=== PATIENT | male | born 1980 | race Caucasian/White ===

== ENCOUNTER 2019-02-01 21:22 | Emergency (ER) | payer OTHER ==
[~2019-02-01] VITALS: Ht 182.9 cm; Wt 83.9 kg
[2019-02-01] MEDS ORDERED: MYFORTIC180 MG PO (21:29)
[2019-02-01] MEDS ORDERED: ENVARSUS XR0.75 MG PO (21:29)
[2019-02-01 21:45] LABS: URINE BILIRUBIN NEGATIVE (Negative); URINE BLOOD 3+ (Negative); URINE CLARITY CLEAR; URINE COLOR YELLOW; URINE GLUCOSE-RANDOM TRACE (Negative); URINE KETONES NEGATIVE (Negative); URINE LEUKOCYTES-REFLEX 1+ (Negative); URINE NITRITE-REFLEX NEGATIVE (Negative); URINE PROTEIN 1+ (Negative); URINE SPECIFIC GRAVITY <= 1.005 (1.005-1.030); URINE UROBILINOGEN 0.2 E.U./dl (0.2-1.0)
[2019-02-01 22:01] LABS: BACTERIA-REFLEX 1-9 Few /HPF (None Seen); CASTS None Seen /LPF (None Seen); CRYSTALS None Seen /LPF (None Seen); SQUAMOUS 0-3 Few /LPF (0-3); URINE RBC 3-10 Few /HPF (0-2); URINE WBC-REFLEX None Seen /HPF (0-5)
[2019-02-01 22:03] LABS: ABSOLUTE EOSINOPHILS 0.4 thou/uL (0.0-0.7); ABSOLUTE LYMPHOCYTES 0.6 thou/uL (0.8-5.3); ABSOLUTE MONOCYTES 0.5 thou/uL (0.0-1.2); BASOPHILS 0.5 %; EOSINOPHILS 7.4 %; HEMATOCRIT 35.8 % (42.0-52.0); HEMOGLOBIN 12.2 gm/dL (14.0-18.0); LYMPHOCYTES 10.8 %; MCH 32.8 pg (26.0-34.0); MCHC 34.2 g/dL (28.0-37.0); MONOCYTES 9.2 %; MPV 8.4 fl. (7.2-11.1); NUCLEATED RBCS 0 /100WBC; PLATELET COUNT* 188 thou/uL (150-400); POLYS 72.1 %; RBC 3.73 mil/uL (4.50-6.00); RDW-CV 12.1 % (10.5-14.5); WBC 5.5 thou/uL (4.0-11.0)
[2019-02-01 22:18] LABS: CALCIUM 8.7 mg/dL (8.5-10.1); CREATININE 11.6 mg/dL (0.6-1.3); POTASSIUM 4.8 mmol/L (3.5-5.1)
[2019-02-01 22:23] LABS: ALBUMIN 2.7 g/dL (3.4-5.0); TOTAL BILIRUBIN 0.3 mg/dL (<0.1-1.0); TOTAL PROTEIN 6.6 g/dL (6.4-8.2)
[2019-02-01 22:40] LABS: APTT 37.7 Seconds (25.0-31.3); INR 1.1; PROTIME 11.3 Seconds (9.20-11.50)
[2019-02-02 00:50] VITALS: BP 108/64
== END 2019-02-02 00:50 | disposition short-term general hospital (02) ==
LOC: M.ERS 21:22
PROVIDERS: Physician Assistant
DX: N45.1 Epididymitis (principal); N17.9 Acute kidney failure, unspecified; R60.1 Generalized edema; Z88.6 Allergy status to analgesic agent; Z94.0 Kidney transplant status

== ENCOUNTER 2019-03-30 15:09 | Inpatient (IN) | payer OTHER ==
[~2019-03-30] VITALS: Ht 182.9 cm; Wt 94.8 kg
--- NOTE | ~2019-03-30 | CON ---
[address] [address] CONSULTATION Name: AYANA MARIA Room: [address] ADM IN M.R.#: [id number] Admission: 03/30/19 Attend Phys: Morena York Discharge: Date of : 82 Report #: [id number] THIS REPORT FOR: //name// CC: [facility] physician/PCP Abhijit Larkin DATE OF SERVICE: 03/31/2019 NEPHROLOGY CONSULTATION The patient is at [facility]. He is in room 109, admitted to Dr. Larkin. REASON FOR CONSULTATION: I am asked to see this 38-year-old gentleman at the request of Dr. Larkin for ESRD management. CHIEF COMPLAINT: The patient presented to the ED yesterday with abnormal lab work. His hemoglobin was down in the 6.8 range. He did not feel badly, but was told to come to the ED because of this. He has some fatigue, which he says is quite common for him after dialysis. He has not had any fever, chills, bleeding from any orifice and no abnormal findings. He said he was rather surprised that his levels were low. PAST MEDICAL HISTORY: He was dialyzing in [place], [place] until he moved to the [place] area. He now dialyzes at the [facility] [facility] off [address]. He dialyzes on Thursday, Thursday, and Thursday. He tolerates this well. His end-stage renal disease is on the basis of polycystic kidney disease. 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 He said there is still hope that the kidney may function, so therefore he is still on mycophenolate as well as tacrolimus. He does not recall the doses. Otherwise, besides his polycystic kidney disease, he has anemia and says that otherwise he has been quite healthy. 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 He says he makes normal amounts per day. He does not think it has gone up or down since his transplant. FAMILY HISTORY: Positive for polycystic kidney disease. SOCIAL HISTORY: No alcohol. No recreational drugs. Apparently in the past, there was some notation of tobacco use, but he stopped doing this. It has been over a couple of years. ALLERGIES: ASPIRIN AND MAGNESIUM. HOME MEDICATIONS: Tacrolimus b.i.d. daily and mycophenolate daily b.i.d. Again, he does not know [place] [address] CONSULTATION Name: AYANA MARIA Room: [address]#: [id number] Admission: 03/30/19 Attend Phys: Morena York Discharge: Date of : 82 Report #: [id number] REVIEW OF SYSTEMS: HEENT: No recent changes in vision or hearing. CARDIAC: No known disease. No chest pain. PULMONARY: Not short of air. No known pulmonary diseases. GASTROINTESTINAL: No nausea, vomiting. No melena. No hematochezia. No constipation or diarrhea. GENITOURINARY: End-stage renal disease, polycystic kidney disease, renal transplant in the right lower quadrant several years ago. He says he has suffered from acute rejection. He is still on his immunosuppressives. HEMATOLOGIC AND LYMPHATIC: Profound anemia. No malignancy history. MUSCULOSKELETAL: Negative. PSYCHIATRIC: Negative. NEUROLOGIC: No TIA, CVA, Parkinson's disease or seizure disorder. ENDOCRINE: Negative for type 2 DM or hypothyroidism. Other 14-point review positive only for polycystic kidney disease, anemia, and immunosuppression. PHYSICAL EXAMINATION: GENERAL: He is awake, alert, healthy appearing. VITAL SIGNS: Temperature is 37.2, heart rate 68, respirations 16, blood pressure initially 172/90, now 122/70. HEENT: Atraumatic, normocephalic. Pupils react to light. NECK: Supple, no increased jugular venous pressure. No bruits. CHEST: Clear. HEART: S1, S2. No rubs, no gallops. ABDOMEN: Soft, nontender, positive bowel sounds. No tenderness over his right renal transplant. EXTREMITIES: Show 2+ pulses. No edema. Negative Homans. NEUROLOGIC: Cranial nerves, sensory, motor are at his baseline. LABORATORY DATA: Shows hemoglobin of 6 on admission, 6.8 this morning, hematocrit 20, white count 2500, platelets are 146,000. Chemistry shows sodium 144, potassium 4.0, chloride 101, CO2 25, BUN 75, creatinine 11.3, glucose 104, calcium 8.8. Liver function studies are not increased. Albumin 3.1. IMAGING STUDIES: Have not recently been done. IMPRESSION: 1. Anemia, questionable etiology. I do not know his recent hemoglobin at his dialysis unit. He does not have any signs of active bleeding. Obviously, he will be looked at for possible etiologies such as undiagnosed bleeding versus destruction versus anemia related to kidney disease and lack of formation of red blood cells. 2. Status post renal transplant several years back. He does not recall the date. He remains on chronic immunosuppressive medications in the form of mycophenolate and tacrolimus. When asked why he is still on these since he is dialysis dependent, he said this is because he has been termed [place] [address] CONSULTATION Name: AYANA MARIA Room: [address] IN [facility]#: [id number] Admission: 03/30/19 Attend Phys: Morena York Discharge: Date of : 82 Report #: [id number] and there is hope that the transplant may indeed began to function. 3. Chronic immunosuppression. 4. End-stage renal disease, on Thursday, Thursday, Thursday dialysis at [place] [facility]. PLAN: 1. We will begin erythropoietin. I am concerned that the patient is not taking his immunosuppressives, they have not been ordered here. I have spoken with his RN and asked her to continue these as he will have someone bring them from home. He needs to remain on his immunosuppressives until he is instructed not to take them. 2. His primary service will likely perform testing to try and ascertain the cause of his anemia to include looking for any hemolysis versus lack of production versus bleeding versus other. 3. We will start erythropoietin. 4. Dialysis tomorrow per his usual schedule. 5. Further recommendations to follow. By: [id number] Nassar MD /nt
[~2019-03-30 15:09] MED LIST: ENVARSUS XR1 MG PO; MYFORTIC360 MG PO
[2019-03-30 15:20] VITALS: BP 126/76
[2019-03-30 16:23] LABS: ABSOLUTE EOSINOPHILS 0.1 thou/uL (0.0-0.7); ABSOLUTE LYMPHOCYTES 0.1 thou/uL (0.8-5.3); ABSOLUTE MONOCYTES 0.5 thou/uL (0.0-1.2); ABSOLUTE NEUTROPHILS 2.7 thou/uL (1.6-8.1); BASOPHILS 0.4 %; EOSINOPHILS 2.3 %; LYMPHOCYTES 3.6 %; MCH 31.4 pg (26.0-34.0); MCV 92.3 fL (80.0-100.0); MONOCYTES 13.4 %; MPV 8.1 fl. (7.2-11.1); NUCLEATED RBCS 0 /100WBC; PLATELET COUNT* 165 thou/uL (150-400); POLYS 80.3 %; RBC 1.93 mil/uL (4.50-6.00); RDW-CV 14.9 % (10.5-14.5); WBC 3.4 thou/uL (4.0-11.0)
[2019-03-30 16:28] LABS: HEMATOCRIT 17.8 % (42.0-52.0)
[2019-03-30 16:31] LABS: ALBUMIN 3.1 g/dL (3.4-5.0); CALCIUM 8.8 mg/dL (8.5-10.1); POTASSIUM 4.4 mmol/L (3.5-5.1); TOTAL BILIRUBIN 0.3 mg/dL (<0.1-1.0); TOTAL PROTEIN 6.1 g/dL (6.4-8.2)
[2019-03-30 16:37] LABS: CREATININE 11.3 mg/dL (0.6-1.3)
[2019-03-30 19:44] VITALS: BP 189/59
[2019-03-30 20:59] VITALS: BP 136/72; BP 139/88; BP 140/80; BP 148/82; BP 160/91
[2019-03-30 21:00] VITALS: BP 160/97
[2019-03-31 01:17] LABS: MCH 30.7 pg (26.0-34.0); MCV 90.3 fL (80.0-100.0); MPV 7.7 fl. (7.2-11.1); RBC 2.22 mil/uL (4.50-6.00); RDW-CV 14.4 % (10.5-14.5); WBC 2.5 thou/uL (4.0-11.0)
[2019-03-31 01:54] LABS: HEMOGLOBIN 6.8 gm/dL (14.0-18.0)
[2019-03-31 04:00] VITALS: BP 146/88
--- NOTE | 2019-03-31 05:46 | NUR ---
FIRST UNIT OF BLOOD TRANSFUSION WAS ALMOST DONE WHEN HE ARRIVE AT 1945 FROM THE ER. VITALS STABLE. NO SYMPTOMS OF REACTIONS. SECOND UNIT OF BLOOD GIVEN ORDERED. ADMISSION HISTORY/ASSESSMENT COMPLETED. H&H DONE AFTER THE TRANSFUSION. Hgb 6.8, Dr. Larkin notified. ONE MORE UNIT OF BLOOD ORDERED. HOURLY ROUNDING COMPLETED. WILL CONTINUE TO MONITOR.
[2019-03-31 08:05] VITALS: BP 172/97
[2019-03-31 09:31] VITALS: BP 122/77; BP 125/86; BP 135/76; BP 142/82
--- NOTE | 2019-03-31 12:20 | NUR ---
SW met with pt to complete initial assessment, introduce self, and SW role. Pt was sleepy but alert to conversation and oriented. Pt lives at home with significant other and is independent with mobility and ADLs. Pt moved to this area a year ago and is established with dialysis MWF. Pt did not express any dc needs at this time.
[2019-03-31 16:50] VITALS: BP 141/80
--- NOTE | 2019-03-31 17:48 | NUR ---
PATIENT RESTING IN BED. PATIEN TIS UP AD QUENTIN IN ROOM. PATIENT DENIES ANY PAIN. PATIENT HAD BLOOD TRANSFUSION THIS AM WITHOUT INCIDENT. PATIENT HAS FAIR APPETITE. PATIENT DENIES ANY NEEDS AT THIS TIME. CALL LIGHT WITHIN REACH. WILL CONTINUE TO MONITOR.
[2019-03-31 19:40] VITALS: BP 156/100
[2019-03-31 21:30] VITALS: BP 144/84
[2019-04-01 04:17] LABS: CALCIUM 8.5 mg/dL (8.5-10.1); POTASSIUM 5.1 mmol/L (3.5-5.1)
[2019-04-01 04:20] LABS: CREATININE 13.4 mg/dL (0.6-1.3)
--- NOTE | 2019-04-01 04:38 | NUR ---
PATIENT HAS REMAINED ALERT AND ORIENTED X 4 THROUGHOUT THE SHIFT AND RESTING QUIETLY ON HOURLY ROUNDS. UP INDEPENDENTLY WITH STEADY GAIT. NO STATED PROBLEMS THIS SHIFT. NO BM FOR TESTING. HOME MEDS STARTED. VITAL SIGNS STABLE. PATIENT STATES HE HAS DIALYSIS IN THE AM ON THURSDAY, THURSDAY AND THURSDAY. WOULD LIKE TO HAVE HERE PRIOR TO DISCHARGE IF POSSIBLE TODAY. CONTINUE TO MONITOR.
[2019-04-01 07:30] VITALS: BP 145/83
[2019-04-01 08:34] LABS: HEMATOCRIT 23.2 % (42.0-52.0); HEMOGLOBIN 8.1 gm/dL (14.0-18.0); MCH 31.5 pg (26.0-34.0); MCV 89.8 fL (80.0-100.0); MPV 8.2 fl. (7.2-11.1); RBC 2.58 mil/uL (4.50-6.00); RDW-CV 14.3 % (10.5-14.5); WBC 3.6 thou/uL (4.0-11.0)
[2019-04-01 11:30] VITALS: BP 145/83
--- NOTE | 2019-04-01 12:18 | NUR ---
Pt to dc home with significant other today. MELVA called [facility] in [place] and spoke with Cailin, the clinic will expect and accept pt back on Thursday. SW to fax flow sheets. No other dc needs expressed.
[2019-04-01 12:49] VITALS: BP 154/89
--- NOTE | 2019-04-01 13:01 | NUR ---
PATIENT HAD DIALYSIS THIS AM, RETURNED AROUND 1245. VITALS STABLE CHARTED. IV DC'D. PATIENT OK TO DISCHARGE PER DR. VILLA AND DR. SKELTON. PATIENT VERBALIZES UNDERSTANDING OF PAPEWORK, NO SCRIPTS. PATIENT GIVEN BACK HOME MEDICATIONS FROM [facility], STATED WILL TAKE TODAYS DOSES AT HOME. PATIENT AMBULATED OUT WITH NURSING STAFF AND ALL BELONGINGS.
== END 2019-04-01 13:05 | disposition home or self-care (01) | DRG 811 ==
LOC: M.ERS 15:09 → M.ORTHSURG 17:33 → M.TBA-ER 17:33 → M.ORTHSURG 20:42
PROVIDERS: Emergency Medicine; Internal Medicine Nephrology; ADMIT Internal Medicine
PROC: 30233N1 Transfusion of Nonautologous Red Blood Cells into Peripheral Vein, Percutaneous Approach (ICD-10-PCS; principal; 2019-03-30)
PROC: 5A1D70Z Performance of Urinary Filtration, Intermittent, Less than 6 Hours Per Day (ICD-10-PCS; 2019-04-01)
DX: D64.9 Anemia, unspecified (principal); N18.6 End stage renal disease; Z94.0 Kidney transplant status; Z88.6 Allergy status to analgesic agent; Z99.2 Dependence on renal dialysis; Z82.71 Family history of polycystic kidney

== ENCOUNTER 2019-04-26 07:07 | Emergency (ER) | payer OTHER ==
[~2019-04-26] VITALS: Ht 182.9 cm; Wt 90.7 kg
[2019-04-26 07:44] LABS: ABSOLUTE EOSINOPHILS 0.1 thou/uL (0.0-0.7); ABSOLUTE LYMPHOCYTES 0.6 thou/uL (0.8-5.3); ABSOLUTE MONOCYTES 0.7 thou/uL (0.0-1.2); ABSOLUTE NEUTROPHILS 3.4 thou/uL (1.6-8.1); BASOPHILS 0.7 %; EOSINOPHILS 2.7 %; HEMATOCRIT 28.3 % (42.0-52.0); HEMOGLOBIN 9.6 gm/dL (14.0-18.0); MCH 30.9 pg (26.0-34.0); MCHC 33.8 g/dL (28.0-37.0); MCV 91.5 fL (80.0-100.0); MONOCYTES 14.4 %; MPV 7.4 fl. (7.2-11.1); NUCLEATED RBCS 0 /100WBC; PLATELET COUNT* 144 thou/uL (150-400); POLYS 70.2 %; RBC 3.09 mil/uL (4.50-6.00); RDW-CV 15.3 % (10.5-14.5); WBC 4.8 thou/uL (4.0-11.0)
[2019-04-26 07:47] LABS: URINE BILIRUBIN NEGATIVE (Negative); URINE BLOOD 1+ (Negative); URINE CLARITY CLEAR; URINE COLOR YELLOW; URINE GLUCOSE-RANDOM TRACE (Negative); URINE KETONES NEGATIVE (Negative); URINE LEUKOCYTES-REFLEX NEGATIVE (Negative); URINE NITRITE-REFLEX NEGATIVE (Negative); URINE PROTEIN 2+ (Negative); URINE SPECIFIC GRAVITY 1.015 (1.005-1.030); URINE UROBILINOGEN 0.2 E.U./dl (0.2-1.0)
[2019-04-26 07:55] LABS: CALCIUM 8.7 mg/dL (8.5-10.1); CREATININE 9.4 mg/dL (0.6-1.3); POTASSIUM 4.5 mmol/L (3.5-5.1)
[2019-04-26 07:58] LABS: ALBUMIN 3.3 g/dL (3.4-5.0); TOTAL BILIRUBIN 0.5 mg/dL (<0.1-1.0); TOTAL PROTEIN 6.8 g/dL (6.4-8.2)
[2019-04-26 08:02] LABS: BACTERIA-REFLEX 1-9 Few /HPF (None Seen); MUCUS 0-3 Light strn/LPF (None Seen); SQUAMOUS 0-3 Few /LPF (0-3); URINE RBC 3-10 Few /HPF (0-2); URINE WBC-REFLEX 0-5 Rare /HPF (0-5)
[2019-04-26 08:03] LABS: AMORPHOUS PHOSPHATES Moderate /LPF (None Seen); FINE GRANULAR CASTS 0-3 Few /LPF (None Seen)
--- NOTE | 2019-04-26 10:53 | EKG ---
[place] [address] ELECTROCARDIOGRAM REPORT Name: AYANA MARIA Room: [facility]#: [id number] Admission: 04/26/19 Attend Phys: Discharge: Date of : 82 Report #: [id number] THIS REPORT FOR: //name// [facility] ED Test Date: 2019-04-26 Test Time: 07:37:03 Pat Name: AYANA MARIA Department: Room: Gender: M Addresser: : 1980 Requested By: Malik Watson Order Number: [id number] MD: Jani York Measurements Intervals [place] Rate: 62 P: 69 CT: 173 QRS: 13 QRSD: 101 T: 67 QT: 454 QTc: 461 Interpretive Statements Sinus rhythm Baseline wander in lead(s) V3 No previous ECG available for comparison Electronically Signed On 04-26-2019 10:53:08 CDT by Jani York [email or web address] <ELECTRONICALLY SIGNED> By: Jani York MD, [facility] 04/26/19 1053 0737 0737 Jani York MD, [facility] /EPI
[2019-04-26 11:00] VITALS: BP 145/77
== END 2019-04-26 11:00 | disposition short-term general hospital (02) ==
LOC: M.ERS 07:07
PROVIDERS: Family Medicine
DX: N18.6 End stage renal disease (principal); K56.1 Intussusception; R10.31 Right lower quadrant pain; Z99.2 Dependence on renal dialysis; Z94.0 Kidney transplant status; Z79.899 Other long term (current) drug therapy; Z88.6 Allergy status to analgesic agent; Z88.8 Allergy status to other drugs, medicaments and biological substances

== ENCOUNTER 2019-06-12 21:54 | Inpatient (IN) | payer OTHER ==
[~2019-06-12] VITALS: Ht 182.9 cm; Wt 99.5 kg
[2019-06-12] MEDS ORDERED: RENAL VITAMIN0.8 MG PO (22:02)
[2019-06-12] MEDS ORDERED: PHOSPHORUS PO (22:03)
[2019-06-12 22:04] VITALS: BP 174/99
[2019-06-12 22:26] LABS: ABSOLUTE EOSINOPHILS 0.2 thou/uL (0.0-0.7); ABSOLUTE LYMPHOCYTES 0.6 thou/uL (0.8-5.3); ABSOLUTE MONOCYTES 0.4 thou/uL (0.0-1.2); ABSOLUTE NEUTROPHILS 2.9 thou/uL (1.6-8.1); BASOPHILS 0.6 %; EOSINOPHILS 5.2 %; HEMATOCRIT 24.3 % (42.0-52.0); HEMOGLOBIN 8.3 gm/dL (14.0-18.0); LYMPHOCYTES 13.4 %; MCH 31.7 pg (26.0-34.0); MCHC 34.2 g/dL (28.0-37.0); MCV 92.5 fL (80.0-100.0); MONOCYTES 9.6 %; MPV 7.5 fl. (7.2-11.1); NUCLEATED RBCS 0 /100WBC; PLATELET COUNT* 100 thou/uL (150-400); POLYS 71.2 %; RBC 2.63 mil/uL (4.50-6.00); RDW-CV 15.9 % (10.5-14.5); WBC 4.1 thou/uL (4.0-11.0)
[2019-06-12 22:32] LABS: INR 1.1; PROTIME 11.7 Seconds (9.20-11.50)
[2019-06-12 22:38] LABS: ANION GAP 23 mmol/L (7-16); BUN 190 mg/dL (7-18); CHLORIDE 100 mmol/L (98-107); CO2 14 mmol/L (21-32); CREATININE 21.7 mg/dL (0.6-1.3); GLUCOSE 100 mg/dL (70-99); SODIUM 137 mmol/L (136-145)
[2019-06-12 22:40] LABS: ALBUMIN 3.3 g/dL (3.4-5.0); ALKALINE PHOSPHATASE 72 U/L (46-116); SGOT 19 U/L (15-37); SGPT 26 U/L (30-65); TOTAL BILIRUBIN 0.4 mg/dL (<0.1-1.0); TOTAL PROTEIN 6.9 g/dL (6.4-8.2); TROPONIN-I LEVEL <0.06 ng/mL (<0.06)
[2019-06-12 22:52] LABS: POTASSIUM 6.9 mmol/L (3.5-5.1)
[2019-06-12 23:05] LABS: URINE BILIRUBIN NEGATIVE (Negative); URINE BLOOD 2+ (Negative); URINE CLARITY CLEAR; URINE COLOR YELLOW; URINE GLUCOSE-RANDOM TRACE (Negative); URINE KETONES NEGATIVE (Negative); URINE LEUKOCYTES-REFLEX NEGATIVE (Negative); URINE NITRITE-REFLEX NEGATIVE (Negative); URINE PROTEIN 3+ (Negative); URINE UROBILINOGEN 0.2 E.U./dl (0.2-1.0)
[2019-06-12 23:11] LABS: SQUAMOUS 0-3 Few /LPF (0-3); TRANSITIONAL EPITHEL CELL 0-3 Few /LPF (None Seen)
[2019-06-12 23:12] LABS: CASTS None Seen /LPF (None Seen); CRYSTALS None Seen /LPF (None Seen); MUCUS 0-3 Light strn/LPF (None Seen); URINE RBC >20 Many /HPF (0-2); URINE WBC-REFLEX 6-15 Few /HPF (0-5)
[2019-06-12 23:41] LABS: AMP/METHAMP Negative (Negative); BARBITURATES Negative (Negative); BENZODIAZEPINES Negative (Negative); COCAINE Negative (Negative); METHADONE Negative (Negative); OPIATES Negative (Negative); PCP Negative (Negative); THC Negative (Negative)
[2019-06-13 05:00] VITALS: BP 155/85
--- NOTE | 2019-06-13 05:33 | NUR ---
NOTIFIED BY DIALYSIS RE: DIALYSIS TREATMENT THIS MORNING
[2019-06-13 08:15] VITALS: BP 157/93
[2019-06-13 13:15] VITALS: BP 145/86
[2019-06-13 13:30] VITALS: BP 145/86
[2019-06-13 16:55] VITALS: BP 157/87
[2019-06-13 18:41] LABS: CALCIUM 8.2 mg/dL (8.5-10.1)
[2019-06-13 18:42] LABS: CREATININE 14.4 mg/dL (0.6-1.3); POTASSIUM 3.6 mmol/L (3.5-5.1)
[2019-06-13 20:08] VITALS: BP 154/89
--- NOTE | 2019-06-13 20:09 | NUR ---
PT ARRIVED ON THE UNIT AROUND 1330. PT VSS, NSR ON TELE. PT UP AT QUENTIN MOVING TO RESTROOM TO VOID WITHOUT DIFFICULTY. PT EXPERIENCING PAIN ON MOVEMENT. PT ORIENTED TO THE ROOM AND CALL LIGHT. PT RESTED MOST OF THE AFTERNOON AFTER DIALYSIS. PT HAS AV FISTULA ON LEFT UPPER ARM. THRILL AND BRUIT PRESENT. DIALYSIS SCHEDULED FOR TOMORROW ALSO, PT HAS NOT GONE TO DIALYSIS FOR TEN DAYS. PT NAUSEATED AND VOMITTING AFTER IV MORPHINE ADMINISTRATION. HOURLY ROUNDING PERFORMED. POSSESSIONS AND CALL LIGHT PLACED WITHIN REACH.
[2019-06-14] VITALS: BP 159/96
[2019-06-14 04:00] VITALS: BP 148/88
--- NOTE | 2019-06-14 06:54 | NUR ---
Pt c/o rt flank pain, rates 8-10/10 when asking for pain medication. Pt usually asleep when pain reassessed. VSS. Anticipating dialysis today. Will continue to monitor.
[2019-06-14 08:00] VITALS: BP 165/93
[2019-06-14 08:10] LABS: HEMATOCRIT 24.7 % (42.0-52.0); HEMOGLOBIN 8.6 gm/dL (14.0-18.0); MCH 31.4 pg (26.0-34.0); MCHC 34.9 g/dL (28.0-37.0); MCV 89.8 fL (80.0-100.0); MPV 7.4 fl. (7.2-11.1); RBC 2.75 mil/uL (4.50-6.00); RDW-CV 15.5 % (10.5-14.5); WBC 4.2 thou/uL (4.0-11.0)
[2019-06-14 08:28] LABS: ALBUMIN 2.9 g/dL (3.4-5.0); POTASSIUM 3.7 mmol/L (3.5-5.1); TOTAL BILIRUBIN 0.3 mg/dL (<0.1-1.0); TOTAL PROTEIN 6.1 g/dL (6.4-8.2)
[2019-06-14 08:29] LABS: CREATININE 15.4 mg/dL (0.6-1.3)
--- NOTE | 2019-06-14 11:40 | NUR ---
Pt out of room. CM spoke to Cailin, nurse at [facility]. SARAH discussed switching Pt's dialysis schedule to T-TH-Sat, in hopes that it would make it easier for Pt to be compliant with dialysis. Per Cailin, she has attempted to discuss changing this with Pt multiple times and Pt will either say that the change won't work or won't answer the phone. Pt is about 1 month out from getting home dialysis set up. Cailin did confirm that they have a TTHS schedule available with a chair time of 545am. CM will discuss with Pt when back in the room.
--- NOTE | 2019-06-14 14:49 | CON ---
[address] [address] CONSULTATION Name: CROWAYANA BUTTS Room: [address] IN M.R.#: [id number] Admission: 06/13/19 Attend Phys: Rusty Gale MD Discharge: Date of : 82 Report #: [id number] THIS REPORT FOR: //name// CC: [facility] physician/PCP Rusty Gale NEPHROLOGY CONSULT CONSULTING PHYSICIAN: Rusty Gale MD REASON FOR CONSULT: End-stage kidney disease. HISTORY OF PRESENT ILLNESS: This is a 38-year-old gentleman with a history of end-stage kidney disease who missed dialysis for about 10 days due to work conflict. He works 12 hours a day, 5 days a week and was unable to attend his dialysis session to help accommodate his work schedule. Home dialysis evaluation is currently in process. He came in with potassium of 6.9 and a BUN of almost 200. He was having some chest pain and shortness of breath and has some evidence of volume overload on imaging. He underwent dialysis today, tolerated it well, has no complaints and appears to be comfortable at present time. REVIEW OF SYSTEMS: Constitutional, psych, heme, eyes, ENT, respiratory, cardiac, GI, , endocrine are all negative except as documented above. PAST MEDICAL HISTORY: History of polycystic kidney disease, history of kidney transplant. FAMILY HISTORY: Positive for polycystic kidney disease. SOCIAL HISTORY: No tobacco or drugs. MEDICATIONS: Reviewed. PHYSICAL EXAMINATION: VITAL SIGNS: Blood pressure 145/86, pulse 68, respirations 16, temperature 36.9. GENERAL: No acute distress. EYES: Open. EARS: Externally normal. NECK: Supple. CARDIOVASCULAR: Regular rate. No rub. LUNGS: Diminished breath sounds. ABDOMEN: Soft. MUSCULOSKELETAL: Nontender. PSYCHIATRIC: Awake, alert. [address] [address] CONSULTATION Name: MARTHAJAYAYANA Room: [address]#: [id number] Admission: 06/13/19 Attend Phys: Rusty Gale MD Discharge: Date of : 82 Report #: [id number] LABORATORY DATA: White cell count 4.1, hemoglobin 8.3, platelets 100. Sodium 137, potassium 6.9, on recheck it was 5.3, chloride 100, bicarbonate 14, BUN 190, creatinine 22, glucose 100, calcium 8, albumin 3.3. ASSESSMENT AND PLAN: 1. End-stage kidney disease, hemodialysis Thursday, Thursday and Thursday at the [facility]. Last dialysis was 06/03/2019. 2. Hyperkalemia on admission with potassium of 6.9. 3. Hypertension. 4. Autosomal dominant polycystic kidney disease. 5. History of kidney transplant in 2014. PLAN: 1. He had evidence of volume overload and hyperkalemia on admission. He was dialyzed this morning and tolerated treatment well. 2. Would avoid morphine in the setting of end-stage kidney disease. 3. Add 2 gram potassium dietary restriction. 4. Add renal multivitamin. 5. I did discuss with him compliance with dialysis treatments. He is being evaluated for home dialysis and has met with home dialysis nurse. We will follow up to see where he is at in that process. 6. We will switch his dialysis schedule on an outpatient setting to Thursday, and Thursday. He is off on Tuesdays and it would be easier for his work schedule for him to make it to the dialysis treatments. 7. Dialysis again tomorrow. We will ultrafilter as tolerated as he does have some evidence of volume overload. Currently, appears to be stable. Thank you for requesting my opinion in the care and management of this patient. <ELECTRONICALLY SIGNED> By: Yancy Marte MD 06/14/19 1449 1606 2232Azay Marte MD /nt
--- NOTE | 2019-06-14 14:52 | EKG ---
[place] [address] ELECTROCARDIOGRAM REPORT Name: AYANA MARIA Room: [address] ADM IN M.R.#: [id number] Admission: 06/13/19 Attend Phys: Rusty Gale MD Discharge: Date of : 82 Report #: [id number] THIS REPORT FOR: //name// [facility] ED Test Date: 2019-06-12 Test Time: 21:58:49 Pat Name: AYANA MARIA Department: Room: [facility] Gender: M Post Adoption Coordinator: AW : 1980 Requested By: Fang Chaney Order Number: [id number] MD: Jose Coronado Measurements Intervals [place] Rate: 61 P: 70 DE: 165 QRS: 26 QRSD: 99 T: 44 QT: 454 QTc: 458 Interpretive Statements Sinus rhythm Baseline wander in lead(s) V1,V3 Compared to ECG 04/26/2019 07:37:03 No significant changes Electronically Signed On 06-14-2019 14:51:54 CDT by Jose Coronado [email or web address] <ELECTRONICALLY SIGNED> By: Jose Coronado MD, [facility] 06/14/19 1451 2158 2158 Jose Coronado MD, [facility] /EPI
[2019-06-14 16:30] VITALS: BP 165/93
[2019-06-14] MEDS ORDERED: ONDANSETRON HCL4 M2 PO (17:15)
[2019-06-14] MEDS ORDERED: NORCO 5-325 TA1 EAC1 PO (17:16)
--- NOTE | 2019-06-14 18:21 | NUR ---
ASSUMED PT CARE AT 0730. ASSESSMENT COMPLETED CHARTED. ABLE TO MAKE NEEDS KNOWN. UP AD QUENTIN IN ROOM. C/O FLANK PAIN AND NAUSEA AND GAVE PRN FOR BOTH PER EMAR. DISCHARGE PAPERWORK GIVEN AND EXPLAINED. IV TAKEN OUT AND HEART MONITOR RETURNED. PT WALKED OUT WITH NURSING STAFF TO WITH ALL BELONGINGS AND SCRIPTS FOR NEW MEDICATIONS AT 0615.
== END 2019-06-14 18:15 | disposition home or self-care (01) | DRG 698 ==
LOC: M.ERS 21:54 → M.2W 06-13 01:09 → M.TBA-ER 06-13 01:09 → M.2W 06-13 12:54
PROVIDERS: Emergency Medicine; Internal Medicine Nephrology; ADMIT Internal Medicine
PROC: 5A1D70Z Performance of Urinary Filtration, Intermittent, Less than 6 Hours Per Day (ICD-10-PCS; principal; 2019-06-13)
DX: T86.19 Other complication of kidney transplant (principal); N18.6 End stage renal disease; N17.9 Acute kidney failure, unspecified; I12.0 Hypertensive chronic kidney disease with stage 5 chronic kidney disease or end stage renal disease; D64.9 Anemia, unspecified; E87.70 Fluid overload, unspecified; Y84.1 Kidney dialysis as the cause of abnormal reaction of the patient, or of later complication, without mention of misadventure at the time of the procedure; E87.5 Hyperkalemia; Z94.0 Kidney transplant status; Z99.2 Dependence on renal dialysis; Z82.71 Family history of polycystic kidney; Z87.891 Personal history of nicotine dependence; Y92.89 Other specified places as the place of occurrence of the external cause; Z79.899 Other long term (current) drug therapy; Z88.6 Allergy status to analgesic agent; Z88.8 Allergy status to other drugs, medicaments and biological substances

== ENCOUNTER 2019-06-19 16:24 | Inpatient (IN) | payer OTHER ==
[~2019-06-19] VITALS: Ht 182.9 cm; Wt 99.3 kg
[~2019-06-19 16:24] MED LIST changes: +NORCO 5-325 TA1 EAC1 PO; +ONDANSETRON HCL4 M2 PO; +PHOSLO667 MG PO; +RENAL VITAMIN0.8 MG PO
[2019-06-19 16:28] VITALS: BP 177/102
[2019-06-19 16:41] LABS: ABSOLUTE EOSINOPHILS 0.2 thou/uL (0.0-0.7); ABSOLUTE LYMPHOCYTES 0.8 thou/uL (0.8-5.3); ABSOLUTE MONOCYTES 0.7 thou/uL (0.0-1.2); ABSOLUTE NEUTROPHILS 6.8 thou/uL (1.6-8.1); BASOPHILS 0.3 %; EOSINOPHILS 2.4 %; HEMATOCRIT 27.1 % (42.0-52.0); HEMOGLOBIN 9.2 gm/dL (14.0-18.0); LYMPHOCYTES 8.9 %; MCHC 33.9 g/dL (28.0-37.0); MCV 91.5 fL (80.0-100.0); MONOCYTES 7.8 %; MPV 7.1 fl. (7.2-11.1); NUCLEATED RBCS 0 /100WBC; PLATELET COUNT* 155 thou/uL (150-400); POLYS 80.6 %; RBC 2.97 mil/uL (4.50-6.00); RDW-CV 15.6 % (10.5-14.5); WBC 8.5 thou/uL (4.0-11.0)
[2019-06-19 16:56] LABS: ANION GAP 15 mmol/L (7-16); BUN 64 mg/dL (7-18); CALCIUM 9.2 mg/dL (8.5-10.1); CHLORIDE 92 mmol/L (98-107); CO2 25 mmol/L (21-32); CREATININE 13.6 mg/dL (0.6-1.3); GLUCOSE 123 mg/dL (70-99); POTASSIUM 4.7 mmol/L (3.5-5.1); SODIUM 132 mmol/L (136-145)
[2019-06-19 17:07] LABS: ALBUMIN 3.4 g/dL (3.4-5.0); ALKALINE PHOSPHATASE 62 U/L (46-116); LIPASE 85 U/L (73-393); MAGNESIUM 2.1 mg/dL (1.8-2.4); NT-PRO BRAIN NAT PEPTIDE 22002 pg/mL (<300); SGOT 19 U/L (15-37); SGPT 29 U/L (30-65); TOTAL BILIRUBIN 0.4 mg/dL (<0.1-1.0); TOTAL PROTEIN 7.7 g/dL (6.4-8.2); TROPONIN-I LEVEL <0.06 ng/mL (<0.06)
[2019-06-19 20:02] VITALS: BP 169/104
[2019-06-20] VITALS: BP 142/82
--- NOTE | 2019-06-20 03:00 | NUR ---
0000 PT C/O LT SHOULDER PAIN RADIATING INTO LT JAW AND ACROSS CHEST. STATES PAIN IS 11/10. PT RESTING QUIETLY IN BED WITH HOB ELEVATED, NO ANXIETY NOTED. O2 APPLIED. VS 144/96 82 AND 20 RESP. TOTAL OF 3 DOSES SL NTG GIVEN WITHOUT RELIEF BUT DOES HAVE HEADACHE. VS STATES, CONT TO BE CALM AND USING OWN CELL PHONE. DR HU NOTIFIED WITHOUT RETURN CALL. DR BROWN RETURNED CALL AND IV PAIN MED ORDER RECIEVED AND GIVEN. PT SLEEPING AFTER THIS.
[2019-06-20 04:00] VITALS: BP 147/93
--- NOTE | 2019-06-20 06:00 | NUR ---
PT ADMITTED TO ROOM 224 FROM ED VIA CART WITH CHEST PAIN AND HEART FAILURE AT 1950. PT HAS HX OF KINDNEY TRANSPLANT,POLYCYCSTIC KIDNEY DZ AND GASTRIC BYPASS. PT CP DESCRIBED ACROSS CHEST TO LEFT SHOULDER AND IS UNRELIEVED WITH NITRO. TROPONIN X3 NEGATIVE. ASSESSMENTS UNREMARKABLE. PT HAS FISTULA TO LEFT UPPER ARM. PT RECIEVES HEMODIALYSIS THURSDAY,THURSDAY AND THURSDAY. PT ALSO HAS AN IV TO RIGHT FA SL. PT EDUCATED TO PLAN OF CARE,TREATMENTS AND PAIN MANAGEMENT. NO FURTHER QUESTIONS, CALL LIGHT WITHIN REACH
[2019-06-20 08:00] VITALS: BP 152/94
--- NOTE | 2019-06-20 11:18 | EKG ---
[place] [address] ELECTROCARDIOGRAM REPORT Name: AYANA MARIA Room: [address] ADM IN .R.#: [id number] Admission: 06/19/19 Attend Phys: Perla Montana MD Discharge: Date of : 82 Report #: [id number] THIS REPORT FOR: //name// [facility] ED Test Date: 2019-06-19 Test Time: 16:29:25 Pat Name: AYANA MARIA Department: Room: [facility] Gender: M Manufacturing Advisor: KF : 1980 Requested By: Sandro William Order Number: [id number] MD: Amauri Block Measurements Intervals [place] Rate: 75 P: 69 RI: 147 QRS: 12 QRSD: 87 T: 27 QT: 388 QTc: 434 Interpretive Statements Sinus rhythm ST elev, probable normal early repol pattern Baseline wander in lead(s) II,V2 Compared to ECG 06/12/2019 21:58:49 no change Electronically Signed On 06-20-2019 11:18:39 CDT by Amauri Block [email or web address] <ELECTRONICALLY SIGNED> By: Amauri Block MD, [facility] 06/20/19 1118 1629 1629 Amauri Block MD, [facility] /EPI
[2019-06-20 11:21] LABS: HEMATOCRIT 22.7 % (42.0-52.0); HEMOGLOBIN 7.8 gm/dL (14.0-18.0); MCH 31.3 pg (26.0-34.0); MCHC 34.5 g/dL (28.0-37.0); MCV 90.9 fL (80.0-100.0); RBC 2.5 mil/uL (4.50-6.00); RDW-CV 15.8 % (10.5-14.5)
--- NOTE | 2019-06-20 11:24 | EKG ---
[place] [address] ELECTROCARDIOGRAM REPORT Name: AYANA MARIA Room: [address] ADM IN M.R.#: [id number] Admission: 06/19/19 Attend Phys: Perla Montana MD Discharge: Date of : 82 Report #: [id number] THIS REPORT FOR: //name// [facility] Test Date: 2019-06-20 Test Time: 00:22:51 Pat Name: AYANA MARIA Department: Room: [address] Gender: M Typing Checker: KATIE : 1980 Requested By: Perla Montana Order Number: [id number] Reading MD: Amauri Block Measurements Intervals [place] Rate: 83 P: 62 [place]: 147 QRS: 14 QRSD: 91 T: 35 QT: 369 QTc: 434 Interpretive Statements Sinus rhythm Electronically Signed On 06-20-2019 11:24:15 CDT by Amauri Block [email or web address] <ELECTRONICALLY SIGNED> By: Amauri Block MD, [facility] 06/20/19 1124 0022 0022 Amauri Block MD, [facility] /EPI
--- NOTE | 2019-06-20 11:49 | NUR ---
MET WITH PT TO DISCUSS HOME SITUATION/DC PLANNING. PT KNOWN FROM HOSPITAL STAY LAST WEEK. HE STATES HE WAS ABLE TO GET THE TRS DIALYSIS SCHEDULE AT [facility] AND WORKS OUT WITH HIS JOB. HE IS STILL WORKING ON SETTING UP HOME DIALYSIS. PT IS INDEPENDENT, LIVES WITH AND FAMILY AND WORKS. HE IS AWAITING STRESS TEST TODAY. DENIES DC NEEDS, WILL FOLLOW
[2019-06-20 11:56] LABS: ALBUMIN 2.8 g/dL (3.4-5.0); CALCIUM 9.3 mg/dL (8.5-10.1); CREATININE 15.2 mg/dL (0.6-1.3); POTASSIUM 4.5 mmol/L (3.5-5.1); TOTAL BILIRUBIN 0.3 mg/dL (<0.1-1.0); TOTAL PROTEIN 6.6 g/dL (6.4-8.2)
[2019-06-20 12:17] VITALS: BP 149/100
--- NOTE | 2019-06-20 17:30 | CARDNUC ---
[place] [address] CARDIAC NUCLEAR IMAGING REPORT Name: AYANA MARIA Room: [address] IN [facility]#: [id number] Admission: 06/19/19 Attend Phys: Perla Montana, Discharge: Date of : 82 Date of Service: 06/20/19 1730 Report #: [id number] THIS REPORT FOR: //name// APPROVED REPORT Imaging Protocol: Stress Tc-99m/Rest Tc-99m 1 day Study performed: 06/20/2019 15:52:00 Indication: Chest pain Patient Location: In-Patient Stress Tech: Flavia Welsh Stress Nurse: Dayis Dominique RN NC Tech:JOSH Bright Ht: 6 ft 0 in Wt: 219 lbs BSA: 2.21 m2 HR: 72 bpm BP: 138/104 mmHg BMI: 29.69 Rhythm: NSR Medical History Medical History: No history of CAD Resting Data Rest SPECT myocardial perfusion imaging was performed in supine position 30 minutes following the intravenous injection of 10.9 mCi of Tc-99m Sestamibi. Time of rest injection: 14:00 The images were gated to evaluate regional wall motion and calculate left ventricular ejection fraction. Administration Route: IV Administration Site: Right Arm Pharmacologic Stress Pharmacologic stress test was performed by injecting Regadenoson 0.4 mg IV push over 10-15 seconds immediately followed by the intravenous injection of 35.2 mCi of Tc-99m Sestamibi. Time of stress injection: 16:00 Administration Route: IV Administration Site: Right Arm Heart Rate at time of stress injection: 83 bpm. Gated Stress SPECT was performed 45 minutes after stress injection. The images were gated to evaluate regional wall motion and calculate left ventricular ejection fraction. Prone [place] [address] CARDIAC NUCLEAR IMAGING REPORT Name: AYANA MARIA Room: [address] IN ..#: [id number] Admission: 06/19/19 Attend Phys: Perla Montana, Discharge: Date of : 82 Date of Service: 06/20/19 1730 Report #: [id number] Stress Test Details Stress Test: Pharmacologic stress testing performed using 0.4 mg of regadenoson per 5 mL given IV over 10 seconds. HR Max Heart Rate (APMHR): 183 bpm Resting HR: 72 bpm Target HR (85% APMHR): 155 bpm Max HR Achieved: 104 bpm % of APMHR: 56 Recovery HR: 77 bpm BP Resting BP: 138/104 mmHg Max BP: 188/98 mmHg Recovery BP: 157/101 mmHg ECG Resting ECG: Sinus Rhythm Stress ECG: Sinus Tachycardia ST Change: None Arrhythmia: None Recovery ECG: Sinus Rhythm Recovery ST Change: None Recovery Arrhythmia: None Clinical The patient tolerated Lexiscan infusion without significant cardiac symptoms. Stress ECG Conclusion The baseline 12-lead EKG shows sinus rhythm without significant ST or T wave abnormality. EKGs obtained during and post walking Lexiscan protocol showed sinus rhythm and sinus tachycardia with no significant ST or T wave changes when compared to baseline. There were no stress-induced arrhythmias. Study Quality Study: Good Artifact: Mild Diaphragmatic artifact Study Data At rest, the left ventricular ejection fraction was 55%.. Post stress, the left ventricular ejection was 47%.. TID = 0.96. Perfusion Lesion images obtained in the supine position [place] [address] CARDIAC NUCLEAR IMAGING REPORT Name: AYANA MARIA Room: [address]#: [id number] Admission: 06/19/19 Attend Phys: Perla Montana, Discharge: Date of : 82 Date of Service: 06/20/19 1730 Report #: [id number] show mild photopenia in the inferior wall that resolves completely with post stress prone imaging suggesting diaphragmatic attenuation artifact. No other significant fixed or reversible defects were identified. Wall Motion Global LV systolic function appears fairly well-preserved. No obvious focal wall motion abnormalities. Nuclear Conclusion ECG Findings: negative for ischemia Clinical Findings: negative for ischemia Nuclear Findings: negative for ischemia Exercise Capacity: not assessed Left Ventricular Function: preserved Perfusion images show no defect to suggest infarct or ischemia. Gated images show no focal wall motion abnormality. This is not a high risk study. <Conclusion> The baseline 12-lead EKG shows sinus rhythm without significant ST or T wave abnormality. EKGs obtained during and post walking Lexiscan protocol showed sinus rhythm and sinus tachycardia with no significant ST or T wave changes when compared to baseline. There were no stress-induced arrhythmias. <ELECTRONICALLY SIGNED> By: Jani York MD, [facility] 06/20/19 1730 29 29 Jani York MD, [facility] /INF
[2019-06-20 20:00] VITALS: BP 162/106
[2019-06-21] VITALS: BP 154/89
--- NOTE | 2019-06-21 01:05 | NUR ---
PT ALERT ORIENTED. UP AD QUENTIN IN ROOM. PT STATES PAIN 10/10. HYDROCODONE AND HYDROMORPHONE GIVEN FOR PAIN. TELEMETRY SHOWS SR. ON RA.
[2019-06-21 04:00] VITALS: BP 169/92
[2019-06-21 04:40] LABS: HEMATOCRIT 23.5 % (42.0-52.0); HEMOGLOBIN 8.2 gm/dL (14.0-18.0)
[2019-06-21 04:57] LABS: ALBUMIN 2.6 g/dL (3.4-5.0); CALCIUM 8.7 mg/dL (8.5-10.1); CREATININE 15.9 mg/dL (0.6-1.3); PHOSPHORUS* 10.7 mg/dL (2.5-4.9); POTASSIUM 4.8 mmol/L (3.5-5.1)
[2019-06-21 08:00] VITALS: BP 148/94
[2019-06-21 11:53] LABS: BE 2.2 mmol/L (-2 to +3); PCO2 39.8 mmHg (35.0-45.0); PO2 69.2 mmHg (75.0-100.0); pH 7.441 (7.340-7.450)
[2019-06-21 13:00] VITALS: BP 144/93
--- NOTE | 2019-06-21 13:54 | NUR ---
ASSUMED CARE OF PATIENT THIS AM AT 0730. PATIENT IS ALERT AND ORIENTED X 4. HE C/O CONTINUED CONSTANT SHARP CHEST AND JAW PAIN. PATIENT ASSESSED O2 SAT LOW AT 88 TO 90% ON ROOM AIR. O2 PLACED ON AT 2 LITERS. PATIENT TAKEN TO DIALYSIS PER BED. PATIENT HAD A FEW SHORT RUNS OF AFIB WITH RVR DURING DIALYSIS. DR VILLA AND DR LANG NOTIFIED. PATIENT RETURNED TO THE ROOM AT ABOUT 1230 THIS AFTERNOON. ORDERS WRITTEN WHILE PATIENT IN DIALYSIS. PATIENT RETURNED TO ROOM AND HE CONTINUES IN PAIN AT 10 ON 1 TO 10 SCALE. PATIENT MEDICATED X 1 IV AND X 1 PO FOR PAIN CONSECUTIVELY. PAIN REMAINS UNRELIEVED AT THIS TIME. PO MEDICATIONS AND ANTIBIOTICS RESUMED. O2 SAT 94% ON 2 LITERS NC. TELE SHOWS SR AT THIS TIME.
--- NOTE | 2019-06-21 14:00 | NUR ---
WAS CALLED BY NURSING TO DISCUSS POSSIBLE TRANSFER FOR VQ PER HOSPITALIST. DISCUSSED WITH HOSPITALIST AND CONSULT FOR PULMONARY RECEIVED. SMOOTH,RN TO CALL IN CONSULT AND DISCUSS CURRENT PT STATUS WITH HOME ENERGY AUDITOR. AWAIT FURTHER DIRECTION
--- NOTE | 2019-06-21 15:02 | EKG ---
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
--- NOTE | 2019-06-21 15:04 | CON ---
[address] [address] CONSULTATION Name: CROWAYANA BUTTS Room: [address] IN M.R.#: [id number] Admission: 06/19/19 Attend Phys: Perla Montana MD Discharge: Date of : 82 Report #: [id number] THIS REPORT FOR: //name// CC: [facility] physician/PCP Perla Montana HISTORY OF PRESENT ILLNESS: A 38-year-old gentleman with history of end-stage kidney disease, who I am asked to see for end-stage kidney disease and dialysis. He dialyzed last week Thursday, Thursday and , did not go to dialysis on Thursday, comes in with chest pain. He is scheduled to have a stress test today. He is not complaining of any shortness of breath, nausea or vomiting. He is currently on room air, appears to be comfortable and is due for a stress test later this afternoon. REVIEW OF SYSTEMS: Constitutional, psych, heme, eyes, ENT, respiratory, cardiac, GI, and endocrine, all negative except as documented above. PAST MEDICAL HISTORY: History of polycystic kidney disease, history of kidney transplant. FAMILY HISTORY: Positive for polycystic kidney disease. SOCIAL HISTORY: No tobacco, alcohol or drugs. CURRENT MEDICATIONS: Reviewed. PHYSICAL EXAMINATION: VITAL SIGNS: Blood pressure is 149/100, pulse 68, respirations 17 and temperature 36.9. GENERAL: No acute distress. EYES: Open. EARS: Externally normal. NECK: Supple. CARDIOVASCULAR: Regular rate. No pericardial friction rub. LUNGS: No crackles. ABDOMEN: Soft. MUSCULOSKELETAL: Nontender. PSYCHIATRIC: Awake, alert. NEUROLOGIC: No asterixis. LABORATORY DATA: White cell count 6, hemoglobin 7.8 and platelets 131. Sodium 134, potassium 4.5, chloride 95, bicarbonate 23, BUN 78, creatinine 15 and albumin 2.8. ASSESSMENT: 1. End-stage kidney disease, hemodialysis Thursday, and Thursday at the [facility] [place] [address] CONSULTATION Name: AYANA MARIA Room: [address] IN ..#: [id number] Admission: 06/19/19 Attend Phys: Perla Montana MD Discharge: Date of : 82 Report #: [id number] 2. History of autosomal dominant polycystic kidney disease. 3. History of failed kidney transplant, kidney transplant was in 2014. 4. History of hypertension. 5. Chest pain, being evaluated by Cardiology and stress test is planned this afternoon. PLAN: No acute indications for dialysis today. He does have some mild hyponatremia and has had some anemia as well, which is asymptomatic at this time. This could be a component of excess fluid and there are no urgent indications for dialysis at this time. We will plan dialysis tomorrow to get him back on his normal routine. Also, recommended 1.5 liters per day fluid restriction. We will ultrafilter with dialysis tomorrow as tolerated. Secondary hyperparathyroidism, on PhosLo. We will check a renal panel in the morning. Thank you for requesting my opinion in the care and management of this patient. <ELECTRONICALLY SIGNED> By: Yancy Marte MD 06/21/19 1504 1446 [id number] Marte MD /nt
[2019-06-21 16:40] VITALS: BP 146/76
--- NOTE | 2019-06-21 16:55 | 2DMMODE ---
[place] [address] 2 D/M-MODE ECHOCARDIOGRAM Name: AYANA MARIA Room: [address] IN [facility]#: [id number] Admission: 06/19/19 Attend Phys: Perla Montana, Discharge: Date of : 82 Date of Service: 06/21/19 1655 Report #: [id number] THIS REPORT FOR: //name// APPROVED REPORT Study performed: 06/21/2019 16:18:06 EXAM: Comprehensive 2D, Doppler, and color-flow Echocardiogram Patient Location: In-Patient Room #: 224 Status: routine BSA: 2.18 HR: 71 bpm BP: 146/76 mmHg Rhythm: NSR Other Information Study Quality: Good Indications Chest Pain 2D Dimensions IVSd: 16.30 (7-11mm) LVOT Diam: 21.86 (18-24mm) LVDd: 61.61 mm PWd: 15.98 (7-11mm) Ascending Ao: 36.88 (22-36mm) LVDs: 38.40 (25-40mm) Aortic Root: 38.42 mm Volumes Left Atrial Volume (Systole) LA ESV Index: 46.20 mL/m2 Aortic Valve AoV Peak Froy.: 1.74 m/s AO Peak Gr.: 12.16 mmHg LVOT Max P.79 mmHg AO Mean Gr.: 6.48 mmHg LVOT Mean P.08 mmHg LVOT Max V: 1.56 m/s AO V2 VTI: 34.22 cm LVOT Mean V: 0.90 m/s MAHESH (VTI): 3.28 cm2 LVOT V1 VTI: 29.88 cm Mitral Valve E/A Ratio: 1.00 MV Decel. Time: 267.28 ms MV E Max Froy.: 0.88 m/[place] [address] 2 D/M-MODE ECHOCARDIOGRAM Name: AYANA MARIA Room: [address] IN .R.#: [id number] Admission: 06/19/19 Attend Phys: Perla Montana, Discharge: Date of : 82 Date of Service: 06/21/19 1655 Report #: [id number] MV PHT: 77.51 ms MVA (PHT): 2.84 cm2 TDI E/Lateral E': 7.33 E/Medial E': 12.57 Medial E' Fryo.: 0.07 m/s Lateral E' Froy.: 0.12 m/s Pulmonary Valve PV Peak Froy.: 1.04 m/s PV Peak Gr.: 4.29 mmHg Tricuspid Valve RAP Estimate: 5.00 mmHg TR Peak Gr.: 25.60 mmHg RVSP: 30.00 mmHg PA Pressure: 30.00 mmHg Left Ventricle Left ventricle is moderately dilated. There is normal LV segmental wall motion. Moderate concentric left ventricular hypertrophy. Left ventricular systolic function is normal. LVEF is 55-60%. Transmitral Doppler flow pattern suggests impaired LV relaxation. Right Ventricle Right ventricle is mildly dilated. The right ventricular systolic function is normal. Atria Left atrium is moderately dilated. Right atrium is moderately dilated. Aortic Valve The aortic valve is normal in structure. No aortic regurgitation is present. There is no aortic valvular stenosis. Mitral Valve The mitral valve is normal in structure. Trace mitral regurgitation. No evidence of mitral valve stenosis. Tricuspid Valve The tricuspid valve is normal in structure. Trace tricuspid regurgitation. Mild pulmonary hypertension. Pulmonic Valve The pulmonary valve is normal in structure. [place] [address] 2 D/M-MODE ECHOCARDIOGRAM Name: AYANA MARIA Room: [address]#: [id number] Admission: 06/19/19 Attend Phys: Perla Montana, Discharge: Date of : 82 Date of Service: 06/21/19 1655 Report #: [id number] Great Vessels The aortic root is normal in size. IVC is normal in size and collapses >50% with inspiration. Pericardium Trace cumferential pericardial effusion. Left pleural effusion. <Conclusion> Left ventricle is moderately dilated. Moderate concentric left ventricular hypertrophy. Left ventricular systolic function is normal. LVEF is 55-60%. Transmitral Doppler flow pattern suggests impaired LV relaxation. Left atrium is moderately dilated. Right atrium is moderately dilated. Right ventricle is mildly dilated. Trace mitral regurgitation. Trace tricuspid regurgitation. Mild pulmonary hypertension. IVC is normal in size and collapses >50% with inspiration. Left pleural effusion. Trace cumferential pericardial effusion. <ELECTRONICALLY SIGNED> By: Jani York MD, FACC 06/21/195 54 54 Jani York MD, FACC /INF
[2019-06-21 20:00] VITALS: BP 143/88
[2019-06-22] VITALS: BP 125/94
[2019-06-22 04:00] VITALS: BP 138/93
--- NOTE | 2019-06-22 05:34 | NUR ---
ASSUMED PATIENT CARE AT 1900. ASSESSMENT COMPLETED CHARTED. VSS. SR ON MONITOR. CLWR. HOURLY ROUNDING IN PLACE FOR PATIENT SAFETY. PATIENT TITRATED OFF OF OXYGEN, PATIENT OXYGEN SATURATION IS 96% ON ROOM AIR. PATIENT CONTINUES TO COMPLAIN OF PAIN IN HIS LEFT NECK, LEFT CHEST, AND LEFT SHOULDER. PRN PAIN MEDICATION ADMINISTERED, SEE EMAR FOR DOCUMENTATION. PATIENT CONTINUES TO RATE PAIN AT 9 OR 10 OUT OF 10. PATIENT DOES NOT APPEAR TO BE IN DISTRESS. PATIENT IS CURRENTLY SLEEPING.
[2019-06-22 05:45] LABS: ALBUMIN 2.6 g/dL (3.4-5.0); CALCIUM 8.8 mg/dL (8.5-10.1); PHOSPHORUS* 7.6 mg/dL (2.5-4.9); POTASSIUM 4.6 mmol/L (3.5-5.1)
[2019-06-22 05:55] LABS: CREATININE 10.2 mg/dL (0.6-1.3)
[2019-06-22 05:58] LABS: HEMATOCRIT 25.2 % (42.0-52.0); HEMOGLOBIN 8.5 gm/dL (14.0-18.0); MCHC 33.7 g/dL (28.0-37.0); MPV 7.6 fl. (7.2-11.1); RBC 2.73 mil/uL (4.50-6.00); RDW-CV 15.5 % (10.5-14.5); WBC 5.4 thou/uL (4.0-11.0)
[2019-06-22 06:13] LABS: ALBUMIN 2.6 g/dL (3.4-5.0); CALCIUM 8.8 mg/dL (8.5-10.1); CREATININE 10.2 mg/dL (0.6-1.3); POTASSIUM 4.5 mmol/L (3.5-5.1); TOTAL BILIRUBIN 0.3 mg/dL (<0.1-1.0); TOTAL PROTEIN 6.5 g/dL (6.4-8.2)
[2019-06-22 08:00] VITALS: BP 150/89
--- NOTE | 2019-06-22 10:37 | EKG ---
[place] [address] ELECTROCARDIOGRAM REPORT Name: AYANA MARIA Room: [address] ADM IN M.R.#: [id number] Admission: 06/19/19 Attend Phys: Perla Montana MD Discharge: Date of : 82 Report #: [id number] THIS REPORT FOR: //name// 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
[2019-06-22 11:57] VITALS: BP 149/91
--- NOTE | 2019-06-22 14:08 | CON ---
[address] [address] CONSULTATION Name: AYANA MARIA Room: [address] IN .R.#: [id number] Admission: 06/19/19 Attend Phys: Perla Montana MD Discharge: Date of : 82 Report #: [id number] THIS REPORT FOR: //name// CC: [facility] physician/PCP Perla Montana DATE OF SERVICE: 06/20/2019 CARDIOLOGY CONSULTATION HISTORY OF PRESENT ILLNESS: The patient is a 38-year-old white male who I was asked to see in the hospital after he complained of chest pain. The patient has no previous history of heart disease. He has a history of polycystic kidney disease and eventually developed end-stage renal disease and was placed on hemodialysis back in 2011. He was overweight at that time weighing over 400 pounds. He had a fistula placed in his left arm. He underwent gastric bypass several years later at [facility]. After he lost about 200 pounds, he then underwent a living donor renal transplant in 2014 at [facility]. However, he developed rejection and had to be placed back on hemodialysis about 3 months ago. He has had no history of heart disease but 3 days ago, he noted some increased shortness of breath. He did go to dialysis 2 days ago. He denied any fever, cough or lower extremity edema. Yesterday, he was at home, he felt a pain in his left shoulder, neck and upper chest. It was not related to any trauma or meals. He did note some diaphoresis and skipped heartbeat, but no syncope. He denied any trauma to his chest or arm. He finally came to the hospital and was admitted. PAST MEDICAL HISTORY: Otherwise unremarkable. There is no history of hypertension, diabetes, or hyperlipidemia. HOME MEDICATIONS: Significant for no chronic medications. FAMILY HISTORY: Negative for heart disease. SOCIAL HISTORY: He is . He and his live here with her children in [place]. 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 No smoking or alcohol abuse. REVIEW OF SYSTEMS: He has had no history of stroke, asthma, peptic ulcer disease, liver disease, cancer or psychiatric illness, chronic skin condition. PHYSICAL EXAMINATION: GENERAL: Revealed a young white male, lying in bed. He appeared in no distress. VITAL SIGNS: He had a blood pressure of 140/80, pulse 60. He is afebrile. HEENT: He was anicteric. Conjunctivae are pink. Mucous membranes moist. NECK: Veins are nondistended. No carotid bruits[place] [address] CONSULTATION Name: AYANA MARIA Room: [address] IN [facility].#: [id number] Admission: 06/19/19 Attend Phys: Perla Montana MD Discharge: Date of : 82 Report #: [id number] CHEST: Clear to auscultation. CARDIOVASCULAR: Regular rate without murmur. ABDOMEN: Soft. EXTREMITIES: Had no edema. Posterior tibial pulse 2+ bilaterally. SKIN: Cool and dry. NEUROLOGIC: Nonfocal. RADIOLOGICAL DATA: His ECG on admission showed a sinus rhythm with early repolarization, but there was no significant ST or T-wave change noted. His workup in the Emergency Room yesterday, he had a portable chest x-ray that showed poor inspiration, some atelectasis, otherwise unremarkable. LABORATORY WORK: Sodium 132, BUN 64, creatinine 13, glucose 123. Troponins 0.06. BNP 2202. His white blood cell count 8.5, hemoglobin 9.2. IMPRESSION AND RECOMMENDATIONS: 1. Chest pain. Atypical for angina. Recommend stress test to rule out ischemia. 2. Shortness of breath. Reason unclear. No evidence of pneumonia or chronic obstructive pulmonary disease. 3. History of obesity. Previously weighed over 400 pounds. The patient underwent gastric bypass in the past. 4. End-stage renal disease secondary to polycystic kidney disease. The patient is on hemodialysis. 5. Anemia. No history of bleeding. <ELECTRONICALLY SIGNED> By: Amauri Block MD, FACC 06/22/19 1408 0900 [id number] Block MD, FACC /nt
--- NOTE | 2019-06-22 14:47 | NUR ---
CONTINUE TO FOLLOW. SPOKE WITH PT ABOUT HIS INSURANCE AND HIS IS BRINGING IN HIS COBRA PAPERS THAT NEED TO BE SENT TO [facility].
[2019-06-22 20:00] VITALS: BP 154/87
[2019-06-23] VITALS: BP 167/80
[2019-06-23 00:03] VITALS: BP 143/100
--- NOTE | 2019-06-23 03:02 | NUR ---
ASSUMED PT CARE AT APPROX 1930. PT IS AWAKE AND ORIENTED X4. VSS ON ROOM AIR. 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 ASSESSMENT DONE AND CHARTED. PT C/O PAIN ON LEFT NECK RADIATING TO THE CHEST AND IS EXACERBATED BY DEEP BREATHING, PARTIALLY RELIEVED BY PAIN MEDS GIVEN PER MAR. AV FISTULA ON LEFT UPPER ARM INTACT, BRUIT AND THRILL PRESENT. PT IS ABLE TO SLEEP SOME THROUGH THE NIGHT. CALL LIGHT WITHIN REACH. HOURLY ROUNDING DONE FOR PT SAFETY.
[2019-06-23 04:30] LABS: HEMATOCRIT 28.4 % (42.0-52.0); HEMOGLOBIN 9.5 gm/dL (14.0-18.0)
[2019-06-23 04:34] VITALS: BP 142/89
[2019-06-23 04:39] LABS: ALBUMIN 2.6 g/dL (3.4-5.0); CALCIUM 9.2 mg/dL (8.5-10.1); PHOSPHORUS* 4.9 mg/dL (2.5-4.9); POTASSIUM 5.2 mmol/L (3.5-5.1)
[2019-06-23 04:54] LABS: CREATININE 7.1 mg/dL (0.6-1.3)
--- NOTE | 2019-06-23 12:47 | CON ---
[address] [address] CONSULTATION Name: CROWAYANA BENJAMÍN Room: [address] IN M.R.#: [id number] Admission: 06/19/19 Attend Phys: Perla Montana MD Discharge: Date of : 82 Report #: [id number] THIS REPORT FOR: //name// CC: [facility] physician/PCP Perla Montana REQUESTING PHYSICIAN: Abhijit Larkin D.O. REASON FOR CONSULTATION: Chest pain, hypoxemia. DISCUSSION: The patient is a nonsmoking 38-year-old man with history of end-stage renal disease and is on chronic hemodialysis. He presented to the Emergency Department on the with complaints of increasing shortness of breath as well as chest pain. It was anterior, did go up to his left shoulder. He had missed some dialysis. He was evaluated in the Emergency Department. Subsequently, was admitted. He was seen by the drapery hanger. Did undergo some testing, which was negative for any evidence of ischemia. Echocardiogram did reveal a small pericardial effusion. He has also had some atrial fibrillation. His D-dimer was elevated. There was some concern yesterday for PE. We were unable to obtain any ventilation perfusion lung scans at this facility. He was also not a candidate for CT angiogram of his chest as he does have a transplanted kidney in place, which is still somewhat functional. He smoked minimally years ago. He has had no prior history of known pulmonary disease. No history of asthma. He has not had pericarditis or pleuritis in the past that he is aware of. He has been off immunosuppressive therapy for a month. He has polycystic kidney disease. He did have a transplant which unfortunately did fail, was rejected. He is in the process of being reevaluated for another transplant. He is not sedentary. 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 He does have 4 children. They have all been healthy. He has not had any periods of prolonged immobility. He had not noted any swelling or discomfort in his legs. He typically does not have any problems with shortness of breath. He will notice it if he is starting to retain more fluid. The chest pain and discomfort he has had with this admission is different than what he has experienced in the past. He did have some nausea and vomited at home. No further vomiting since he has been admitted, but remains mildly nauseated. He does note the pain is worse when he lies flat. He has had minimal cough, no sputum production. Not had any diarrhea. PAST MEDICAL HISTORY: Remarkable primarily for the polycystic kidney disease with end-stage renal disease. Previously, had been dialyzing in [place] and moved to this area. He received his kidney transplant about 3 years ago at [facility]. Was continued on immunosuppressives up until this summer, has now been weaned off completely. He had been on mycophenolate, [place] [address] CONSULTATION Name: AYANA MARIA Room: [address] IN ..#: [id number] Admission: 06/19/19 Attend Phys: Perla Montana MD Discharge: Date of : 82 Report #: [id number] tacrolimus and steroids. SOCIAL HISTORY: He is . Has 4 children. 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 FAMILY HISTORY: Positive for hypertension, hyperthyroidism. No history of thromboembolic disease. REVIEW OF SYSTEMS: Complete ROS was done. No post-positives above. Has noted some intermittent palpitations. The pain is worse with coughing or deep breathing. Positional as noted above. Not had any hemoptysis, no blood in his stools. Has had evaluation previously for anemia. No syncopal episodes. No skin rashes. Not noted any lower extremity edema. We will have more of a sense of fullness and retaining fluid if he does miss with dialysis. PHYSICAL EXAMINATION: GENERAL APPEARANCE: A man looks stated age. He is resting in bed. Currently, he is on room air. No acute distress. He is able to speak in full sentences. HEENT: Head is normocephalic. Sclerae nonicteric. Mucous membranes are moist. NECK: Negative for adenopathy. No JVD is noted. No supraclavicular adenopathy. HEART: Regular with occasional extrasystole. Does have a very loud pericardial rub. N o S3. LUNGS: Reveal breath sounds to be minimally diminished at the bases. He is doing some splinting. I do hear a pleural rub posteriorly on the right. No dullness to percussion. No E to A changes. No CVA tenderness. ABDOMEN: Soft, without appreciable hepatosplenomegaly. LOWER EXTREMITIES: Negative for edema. No calf tenderness. No varicosities noted. SKIN: Warm and dry. NEUROLOGIC: He is alert and oriented x 3. LABORATORY AND X-RAY FINDINGS: Chest x-rays were reviewed. On the PA and lateral film done yesterday afternoon, heart size is upper limits of normal. Does appear to have small pleural effusions. Reviewing chest x-ray done, 06/12/2019, did not appear to have any significant pleural effusions noted at that time. He did have a CT abdomen done on 06/12/2019. He does have some minimal scarring noted, but there was no pleural effusions appreciated on that study. Venous Dopplers of his lower extremities done yesterday are negative for DVT. Reviewing his labs, in late May when he was admitted, his BUN was as high as 190. This morning is down to 46. Creatinine was high as 21.7, now down to 10.2. Phosphorus today 7.6, calcium 8.8. Transaminase is normal. ProBNP on admission was just over 22,000. Albumin 2.6. INR was normal. D-dimer was 12.52. White blood cell count 5400, hemoglobin 8.5, hematocrit of 25.2, platelets are normal. Does appear his hemoglobin was as low as 6.0 back in March. Arterial blood gases done yesterday, 2 liters, he had a pH of 7.44, [place] [address] CONSULTATION Name: AYANA MARIA Room: [address] IN [facility]#: [id number] Admission: 06/19/19 Attend Phys: Perla Montana MD Discharge: Date of : 82 Report #: [id number] of 40, pO2 of 69, bicarbonate 27 with saturation 91%. He is now on room air. IMPRESSION: 1. Chest pain, appears to have pericarditis. Probably actually has a true pleural pericarditis as I do hear a pleural rub. May be related to his renal failure. Note, within the last few weeks, had extremely high BUN and creatinine. Those have improved with dialysis. Could also be potentially viral or infectious related. I do not think he has an acute bacterial infection. It is somewhat immunocompromised given his chronic renal failure. Per history, he has been off immunosuppressives now for at least a month, if not longer. Clinically, doubt this is a PE. He does not have any other true or significant risk factors. Dopplers were negative. 2. History of polycystic kidney disease with end-stage renal disease. Status post transplant, which unfortunately was rejected. 2. Chronic anemia. RECOMMENDATIONS: 1. I discussed with Dr. Block. Await renal input in regards to safest medications to use. Ideally nonsteroidals would be utilized, but with his transplant kidney still in place and somewhat functional, obviously would need to try and protect renal function as much as possible. Possible colchicine? 2. I will also check respiratory viral panel, JOSEPHINE, sed rate and CRP as inflammatory markers. 3. Continue supportive care. Obviously having better pain control will be beneficial. <ELECTRONICALLY SIGNED> By: Vita Hitchcock MD 06/23/19 1247 1006 [id number] Hitchcock MD /nt
[2019-06-23 16:26] VITALS: BP 144/97
--- NOTE | 2019-06-23 16:44 | 2DMMODE ---
[facility] [address] [place] [address] 2 D/M-MODE ECHOCARDIOGRAM Name: TONNYNELSONJAYAYANA JANI Room: [facility] IN [facility]#: [id number] Admission: 06/19/19 Attend Phys: Perla Montana, Discharge: Date of : 82 Date of Service: 06/23/19 1644 Report #: [id number] THIS REPORT FOR: //name// APPROVED REPORT Study performed: 06/23/2019 14:52:14 EXAM: Limited 2D Echocardiogram Patient Location: In-Patient Room #: 224 Status: routine BSA: 2.18 HR: 79 bpm BP: 142/89 mmHg Rhythm: NSR Other Information Study Quality: Good Indications Pericardial Effusion Left Ventricle Left ventricle is moderately dilated. There is normal LV segmental wall motion. Moderate concentric left ventricular hypertrophy. The left ventricular systolic function is normal. LVEF is 55-60%. Right Ventricle Right ventricle is mildly dilated. The right ventricular systolic function is normal. Atria Left atrium is moderately dilated. Right atrium is moderately dilated. Aortic Valve The aortic valve is normal in structure. Mitral Valve The mitral valve is normal in structure. Tricuspid Valve The tricuspid valve is normal in structure. Pulmonic Valve The pulmonary valve is normal in structure. [place] [address] 2 D/M-MODE ECHOCARDIOGRAM Name: AYANA MARIA Room: [address] IN M.R.#: [id number] Admission: 06/19/19 Attend Phys: Perla Montana, Discharge: Date of : 82 Date of Service: 06/23/191643 Report #: [id number] Great Vessels The aortic root is normal in size. IVC is normal in size and collapses >50% with inspiration. Pericardium Trace pericardial effusion. No echo indications of pericardial tamponade. <Conclusion> Left ventricle is moderately dilated. Moderate concentric left ventricular hypertrophy. The left ventricular systolic function is normal. LVEF is 55-60%. Right ventricle is mildly dilated. Left atrium is moderately dilated. Right atrium is moderately dilated. Trace pericardial effusion. No echo indications of pericardial tamponade. <ELECTRONICALLY SIGNED> By: Jani York MD, FACC 06/23/191643 43 43 Jani York MD, FACC /INF
--- NOTE | 2019-06-23 17:25 | EKG ---
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
--- NOTE | 2019-06-23 17:25 | NUR ---
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 DIALYSIS THIS SHIFT, 3.5 LITERS REMOVED FROM PATIENT, AV FISTULA ON LEFT UPPER ARM IN TACT, BRUIT AND THRILL PRESENT. HOURLY ROUNDING COMPLETED.
[2019-06-23 20:00] VITALS: BP 132/81
[2019-06-23 23:07] LABS: MYCOPLASMA PNEUMONIA IgG 2277 U/mL (0-99); MYCOPLASMA PNEUMONIA IgM <770 U/mL (0-769)
[2019-06-24] VITALS: BP 128/72
[2019-06-24 04:00] VITALS: BP 125/76
[2019-06-24 07:30] VITALS: BP 117/86
--- NOTE | 2019-06-24 10:45 | EKG ---
[place] [address] ELECTROCARDIOGRAM REPORT Name: AYANA MARIA Room: [address] ADM IN M.R.#: [id number] Admission: 06/19/19 Attend Phys: Perla Montana MD Discharge: Date of : 82 Report #: [id number] THIS REPORT FOR: //name// [facility] Test Date: 2019-06-24 Test Time: 08:12:19 Pat Name: AYANA MARIA Department: Room: [address] Gender: M Mucker [place]: : 1980 Requested By: Amauri Block Order Number: [id number] Aj MD: Amauri Block Measurements Intervals [place] Rate: 57 P: 45 [place]: 162 QRS: 22 QRSD: 103 T: 47 QT: 475 QTc: 463 Interpretive Statements Sinus bradycardia ST elev, probable normal early repol pattern Compared to ECG 06/23/2019 14:18:06 No significant changes Electronically Signed On 06-24-2019 10:44:49 CDT by Amauri Block [email or web address] <ELECTRONICALLY SIGNED> By: Amauri Block MD, [facility] 06/24/19 1044 1 1 Amauri Block MD, [facility] /EPI
[2019-06-24] MEDS ORDERED: PACERONE 200 M200 M1 PO (14:10)
[2019-06-24] MEDS ORDERED: RENVELA800 MG PO (14:33)
[2019-07-01 10:14] LABS: ADENOVIRUS Negative (Negative); INFLUENZA A Negative (Negative); INFLUENZA B Negative (Negative); METAPNEUMOVIRUS Negative (Negative); PARAINFLUENZA 1 Negative (Negative); PARAINFLUENZA 2 Negative (Negative); PARAINFLUENZA 3 Negative (Negative); RHINOVIRUS Negative (Negative); RSV A Negative (Negative); RSV B Negative (Negative)
== END 2019-06-24 16:11 | disposition home or self-care (01) | DRG 291 ==
LOC: M.ERS 16:24 → M.TBA-ER 17:31 → M.2W 17:31
PROVIDERS: Emergency Medicine Emergency Medical Services; Internal Medicine; Internal Medicine Nephrology; Internal Medicine Pulmonary Disease; ADMIT Internal Medicine
PROC: 5A1D70Z Performance of Urinary Filtration, Intermittent, Less than 6 Hours Per Day (ICD-10-PCS; principal; 2019-06-21)
PROC: 5A1D70Z Performance of Urinary Filtration, Intermittent, Less than 6 Hours Per Day (ICD-10-PCS; 2019-06-22)
PROC: 5A1D70Z Performance of Urinary Filtration, Intermittent, Less than 6 Hours Per Day (ICD-10-PCS; 2019-06-23)
PROC: 5A1D70Z Performance of Urinary Filtration, Intermittent, Less than 6 Hours Per Day (ICD-10-PCS; 2019-06-24)
DX: I13.2 Hypertensive heart and chronic kidney disease with heart failure and with stage 5 chronic kidney disease, or end stage renal disease (principal); N18.6 End stage renal disease; J96.01 Acute respiratory failure with hypoxia; I50.41 Acute combined systolic (congestive) and diastolic (congestive) heart failure; I32 Pericarditis in diseases classified elsewhere; Z94.0 Kidney transplant status; N17.9 Acute kidney failure, unspecified; E78.5 Hyperlipidemia, unspecified; E66.9 Obesity, unspecified; E11.22 Type 2 diabetes mellitus with diabetic chronic kidney disease; D63.1 Anemia in chronic kidney disease; E83.39 Other disorders of phosphorus metabolism; M10.9 Gout, unspecified; Z88.6 Allergy status to analgesic agent; Z88.8 Allergy status to other drugs, medicaments and biological substances; Z68.29 Body mass index [BMI] 29.0-29.9, adult; Z82.49 Family history of ischemic heart disease and other diseases of the circulatory system; Z83.49 Family history of other endocrine, nutritional and metabolic diseases

== ENCOUNTER 2019-07-05 11:34 | Inpatient (IN) | payer OTHER ==
[~2019-07-05] VITALS: Ht 175.3 cm; Wt 96.6 kg
[~2019-07-05 11:34] MED LIST changes: +PACERONE 200 M200 M1 PO; +RENVELA800 MG PO
[2019-07-05 11:38] VITALS: BP 152/83
[2019-07-05 12:05] LABS: ABSOLUTE BASOPHILS 0.1 thou/uL (0.0-0.2); ABSOLUTE EOSINOPHILS 0.4 thou/uL (0.0-0.7); ABSOLUTE LYMPHOCYTES 0.6 thou/uL (0.8-5.3); ABSOLUTE MONOCYTES 0.6 thou/uL (0.0-1.2); ABSOLUTE NEUTROPHILS 4.7 thou/uL (1.6-8.1); BASOPHILS 1.2 %; EOSINOPHILS 6.6 %; HEMATOCRIT 26.3 % (42.0-52.0); HEMOGLOBIN 8.8 gm/dL (14.0-18.0); MCH 30.2 pg (26.0-34.0); MCHC 33.4 g/dL (28.0-37.0); MCV 90.5 fL (80.0-100.0); MONOCYTES 9.1 %; MPV 6.7 fl. (7.2-11.1); NUCLEATED RBCS 0 /100WBC; PLATELET COUNT* 257 thou/uL (150-400); POLYS 74.1 %; RBC 2.91 mil/uL (4.50-6.00); WBC 6.4 thou/uL (4.0-11.0)
[2019-07-05 12:17] LABS: CALCIUM 8.8 mg/dL (8.5-10.1); CREATININE 10.5 mg/dL (0.6-1.3); POTASSIUM 4.7 mmol/L (3.5-5.1)
[2019-07-05 12:25] LABS: INR 1.1; PROTIME 11.4 Seconds (9.20-11.50)
[2019-07-05 12:31] LABS: ALBUMIN 2.9 g/dL (3.4-5.0); CK-MB MASS 0.7 ng/mL (<0.5-3.6); MAGNESIUM 2.3 mg/dL (1.8-2.4); TOTAL BILIRUBIN 0.4 mg/dL (<0.1-1.0)
--- NOTE | 2019-07-05 15:00 | NUR ---
PT UP TO UNIT VIA CART. PT HAS BEEN NPO. PT TO CT. REPORTS CHEST PAIN.
[2019-07-05 15:16] VITALS: BP 132/78
[2019-07-05 15:56] VITALS: BP 127/80
--- NOTE | 2019-07-05 16:09 | EKG ---
[place] [address] ELECTROCARDIOGRAM REPORT Name: AYANA MARIA Room: [address] ADM IN .R.#: [id number] Admission: 07/05/19 Attend Phys: Paco Knight MD Discharge: Date of : 82 Report #: [id number] THIS REPORT FOR: //name// [facility] ED Test Date: 2019-07-05 Test Time: 11:37:56 Pat Name: AYANA MARIA Department: Room: [facility] Gender: M Manager Recruiting: DILLAN : 1980 Requested By: Fred Edwards Order Number: [id number] MD: Amauri Block Measurements Intervals [place] Rate: 58 P: 49 HI: 152 QRS: 29 QRSD: 98 T: 44 QT: 467 QTc: 459 Interpretive Statements Sinus rhythm RSR' in V1 or V2, right VCD or RVH Compared to ECG 06/24/2019 08:12:19 RSR' in V1 or V2 now present ST (T wave) deviation no longer present Electronically Signed On 07-05-2019 16:09:01 CDT by Amauri Block [email or web address] <ELECTRONICALLY SIGNED> By: Amauri Block MD, FACC 07/05/19 1609 1137 1137 Amauri Block MD, FACC /EPI
--- NOTE | 2019-07-05 16:33 | 2DMMODE ---
[facility] [place] [address] [place] [address] 2 D/M-MODE ECHOCARDIOGRAM Name: TONNYNELSONJAYAYANA BENJAMÍN Room: [address] ADM IN .R.#: [id number] Admission: 07/05/19 Attend Phys: Paco Knight, Discharge: Date of : 82 Date of Service: 07/05/19 1633 Report #: [id number] THIS REPORT FOR: //name// APPROVED REPORT Study performed: 07/05/2019 14:14:23 EXAM: Limited 2D Echocardiogram Patient Location: ER Room #: er Status: routine BSA: 2.20 HR: 56 bpm BP: 131/82 mmHg Rhythm: NSR Other Information Study Quality: Excellent Indications Pericardial Effusion Left Ventricle Left ventricle is at the upper limits of normal. There is normal LV segmental wall motion. Moderate concentric left ventricular hypertrophy. The left ventricular systolic function is normal. The left ventricular ejection fraction is within the normal range. LVEF is 55-60%. Right Ventricle Right ventricle is mildly dilated. The right ventricular systolic function is normal. Atria Left atrium is moderately dilated. Right atrium is moderately dilated. Aortic Valve The aortic valve is normal in structure. Mitral Valve The mitral valve is normal in structure. Tricuspid Valve The tricuspid valve is normal in structure. [place] [address] 2 D/M-MODE ECHOCARDIOGRAM Name: AYANA MARIA Room: [address] ADM IN M.R.#: [id number] Admission: 07/05/19 Attend Phys: Paco Knight, Discharge: Date of : 82 Date of Service: 07/05/191632 Report #: [id number] Pulmonic Valve The pulmonary valve is normal in structure. Great Vessels The aortic root is normal in size. IVC is normal in size and collapses >50% with inspiration. Pericardium Mild pericardial effusion. <Conclusion> Moderate concentric left ventricular hypertrophy. LVEF is 55-60%. Left atrium is moderately dilated. Mild pericardial effusion. <ELECTRONICALLY SIGNED> By: Amauri Block MD, FACC 07/05/193 32 32 Amauri Block MD, FACC /INF
--- NOTE | 2019-07-05 18:11 | NUR ---
PT UP TO UNIT THIS AFTERNOON. PT REPORTS CHEST PAIN. NSR ON MONITOR. TOLERATING PO WELL
[2019-07-05 20:00] VITALS: BP 131/89
[2019-07-06 00:39] VITALS: BP 132/73
[2019-07-06 04:00] VITALS: BP 134/82
[2019-07-06 05:27] LABS: HEMATOCRIT 27.7 % (42.0-52.0); HEMOGLOBIN 9.4 gm/dL (14.0-18.0); MCH 30.6 pg (26.0-34.0); MCHC 33.9 g/dL (28.0-37.0); MCV 90.2 fL (80.0-100.0); MPV 6.8 fl. (7.2-11.1); NUCLEATED RBCS 0 /100WBC; PLATELET COUNT* 251 thou/uL (150-400); RBC 3.08 mil/uL (4.50-6.00); RDW-CV 15.4 % (10.5-14.5); WBC 9.8 thou/uL (4.0-11.0)
[2019-07-06 05:51] LABS: CALCIUM 8.5 mg/dL (8.5-10.1)
[2019-07-06 05:58] LABS: CREATININE 11.6 mg/dL (0.6-1.3)
[2019-07-06 05:59] LABS: POTASSIUM 5.8 mmol/L (3.5-5.1)
[2019-07-06 06:10] LABS: ABSOLUTE LYMPHOCYTES 0.2 thou/uL (0.8-5.3); ABSOLUTE MONOCYTES 0.1 thou/uL (0.0-1.2); ABSOLUTE NEUTROPHILS 9.5 thou/uL (1.6-8.1); ANISOCYTOSIS 1+; PLATELET ESTIMATE ADEQUATE; POIKILOCYTOSIS 1+; POLYCHROMASIA 1+
[2019-07-06 08:00] VITALS: BP 138/79
--- NOTE | 2019-07-06 08:18 | CON ---
[address] [address] CONSULTATION Name: AYANA MARIA Room: [address] IN M.R.#: [id number] Admission: 07/05/19 Attend Phys: Paco Knight MD Discharge: Date of : 82 Report #: [id number] THIS REPORT FOR: //name// CC: Paco Knight [facility] physician/PCP DATE OF SERVICE: 07/05/2019 INDICATION: Chest pain. HISTORY OF PRESENT ILLNESS: The patient is a very pleasant 38-year-old gentleman, who was seen late last month with chest pain. At that time, stress testing showed no evidence of ischemia, normal LV function. He did have an episode of atrial fibrillation during that hospitalization and was placed on amiodarone. He has maintained sinus rhythm since then. He was felt to possibly have pericarditis. The patient presents with continued chest pain. The pain is midsternal and worse when lying flat. Echocardiogram shows normal LV systolic function and a small pericardial effusion, possibly consistent with acute pericarditis. He does have some increased pain with deep breath. He is without other complaints at this time. PAST MEDICAL HISTORY: 1. End-stage renal disease, on hemodialysis. 2. History of gastric bypass surgery. 3. 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 4. Polycystic kidney disease. FAMILY HISTORY: Noncontributory. SOCIAL HISTORY: The patient does not smoke. He does not drink alcohol. CURRENT MEDICATIONS: Amiodarone 400 mg b.i.d., PhosLo 1334 mg q.a.c., renal vitamins one tablet daily, [place] 5/325 every 6 hours p.r.n., Zofran 4 mg every 4 hours p.r.n., Renvela 800 mg q.a.c. ALLERGIES: None documented. PHYSICAL EXAMINATION: VITAL SIGNS: Blood pressure 127/80, pulse is 58. GENERAL: This is a pleasant gentleman, in no distress. Mood and affect appropriate. HEENT: The patient is wearing glasses. Extraocular muscles are intact. Mucous membranes are moist. NECK: Shows no jugular venous distention. There are no carotid bruits. CHEST: [place] [address] CONSULTATION Name: AYANA MARIA Room: [address]#: [id number] Admission: 07/05/19 Attend Phys: Paco Knight MD Discharge: Date of : 82 Report #: [id number] CARDIOVASCULAR: Reveals a regular rhythm with a very soft 1/6 systolic ejection murmur. ABDOMEN: Reveals normal bowel sounds. The abdomen is soft and nontender. EXTREMITIES: Shows no edema. Peripheral pulses palpable. SKIN: Warm and dry. IMPRESSION AND RECOMMENDATIONS: 1. Probable continued acute pericarditis. At this time, we will start renal dose colchicine and ibuprofen. We will follow clinically. 2. Paroxysmal atrial fibrillation. The patient has been on amiodarone. I would not use this for long-term rhythm control. We will cut down to 200 mg daily at this time and follow. His JANINA score is 0. No need for anticoagulation. He is maintaining sinus rhythm. <ELECTRONICALLY SIGNED> By: Jani York MD, FACC 07/06/19 0818 1704 1855[facility] York MD, FACC /nt
[2019-07-06] MEDS ORDERED: PROTONIX40 M1 PO (10:48)
[2019-07-06] MEDS ORDERED: PREDNISONE 10 M10 MG PO (10:54)
[2019-07-06] MEDS ORDERED: MITIGARE0.6 MG PO (11:20)
[2019-07-06 11:26] VITALS: BP 138/79
--- NOTE | 2019-07-07 05:09 | CON ---
[address] [address] CONSULTATION Name: TONNYNELSONJAYAYANASHAHLA BUTTS Room: [address] IN M.R.#: [id number] Admission: 07/05/19 Attend Phys: Paco Knight MD Discharge: 07/06/19 Date of : 82 Report #: [id number] THIS REPORT FOR: //name// CC: Paco Knight FAM physician/PCP DATE OF SERVICE: 07/06/2019 NEPHROLOGY CONSULTATION CONSULTING PHYSICIAN: Paco Knight MD REASON FOR NEPHROLOGY CONSULTATION: End-stage renal disease for hemodialysis needs. REASON FOR ADMISSION: Chest pain. HISTORY OF PRESENT ILLNESS: This is a 38-year-old male. He has past medical history of end-stage renal disease, on hemodialysis every Thursday, , and Thursday; history of polycystic kidney disease and history of kidney transplant failed and left AV fistula and recent admission with uremic pericarditis, pericardial effusion, came in again after he was having chest pain again. He went for dialysis yesterday. He started having chest pain the day before. He was not dialyzed yesterday and he was just sent over to the hospital. He had a CTA here, which revealed a large pericardial effusion, but the pericardial effusion was small to moderate on the echocardiogram as per Dr. York. His BUN is 80. He denies missing any dialysis treatment. He usually dialyzes for 4 hours. There have not been any problems with dialysis AV fistula that I am aware of. He missed his dialysis yesterday because of investigations and he is supposed to get dialyzed today. Today, he feels good and he is not having any chest pain. ALLERGIES: ASPIRIN AND MAGNESIUM. REVIEW OF SYSTEMS: As mentioned in history of present illness; otherwise, 10-point review of systems is negative. HOME MEDICATIONS: Include folic acid, calcium acetate, ondansetron, [place], amiodarone, Renvela. PAST MEDICAL AND SURGICAL HISTORY: Includes end-stage renal disease, on hemodialysis every Thursday, , and Thursday. He has a left arm AV fistula, which is mildly aneurysmal, also dominant polycystic kidney disease, kidney transplant recipient, and gastric bypass. FAMILY HISTORY: Significant for family history [place] [address] CONSULTATION Name: AYANA MARIA Room: [address]#: [id number] Admission: 07/05/19 Attend Phys: Paco Knight MD Discharge: 07/06/19 Date of : 82 Report #: [id number] father; hypothyroidism in mother. SOCIAL HISTORY: Does not smoke, drink alcohol, or use illicit drugs. PHYSICAL EXAMINATION: VITAL SIGNS: Blood pressure is 138/79, pulse rate is 90, temperature 36.7, respiratory rate is 20, and pulse oximetry is on room air 96%. GENERAL: He is awake, alert, oriented x3. HEENT: Head: Atraumatic, normocephalic. Ears, nose, and throat: Mucous membranes are moist. NECK: No JVD. CHEST: Bilaterally clear to auscultation. No crackles or wheezing. CARDIOVASCULAR: S1, S2 normal. No rubs. ABDOMEN: Soft, nondistended, nontender. VASCULAR: AV fistula in left arm is mildly aneurysmal with good bruit and thrill. EXTREMITIES: Lower extremities, no edema. NEUROLOGIC: Gross neurological function is intact. PSYCHIATRIC: Mood and affect seem to be normal. LABORATORY DATA: WBC 9.8, hemoglobin is 9.4, platelet count is 251. Sodium is 135, potassium is 5.8, and BUN is 81. Other labs are reviewed. IMAGING: CTA and chest x-ray were reviewed. ASSESSMENT: 1. End-stage renal disease, on hemodialysis Thursday, , and Thursday. 2. History of autosomal dominant polycystic kidney disease. 3. Chest pain due to uremic pericardial effusion. Cardiology is also following. 4. Hypertension. 5. Anemia of chronic kidney disease. PLAN: 1. He has been started on ibuprofen and colchicine as per Cardiology and he feels like his pain is better. 2. Discussed with Cardiology. They think it is uremic pericarditis. We will dialyze him every day and we will defer to Cardiology one-to-one to check an echo based upon the patient's symptoms to ensure that the pericardial effusion is getting smaller. 3. We will use a 2 K bath with dialysis; he should be on a renal diet. 4. We will give him erythropoietin [place] [address] CONSULTATION Name: AYANA MARIA Room: [address]#: [id number] Admission: 07/05/19 Attend Phys: Paco Knight MD Discharge: 07/06/19 Date of : 82 Report #: [id number] Thank you for this consultation. We will continue to follow with you; discussed with the patient as well as Dr. York. <ELECTRONICALLY SIGNED> By: Yady Pike MD 07/07/19 0509 0920 1002Yady Pike MD /nt
== END 2019-07-06 15:22 | disposition home or self-care (01) | DRG 314 ==
LOC: M.ERS 11:34 → M.2W 13:38 → M.TBA-ER 13:38 → M.2W 15:31
PROVIDERS: Emergency Medicine; ADMIT Internal Medicine
DX: I31.9 Disease of pericardium, unspecified (principal); N18.6 End stage renal disease; Z94.0 Kidney transplant status; I12.0 Hypertensive chronic kidney disease with stage 5 chronic kidney disease or end stage renal disease; I31.3 Pericardial effusion (noninflammatory); I48.0 Paroxysmal atrial fibrillation; D63.1 Anemia in chronic kidney disease; Z83.49 Family history of other endocrine, nutritional and metabolic diseases; Z88.6 Allergy status to analgesic agent; Z88.8 Allergy status to other drugs, medicaments and biological substances; Z82.49 Family history of ischemic heart disease and other diseases of the circulatory system; Z99.2 Dependence on renal dialysis

== ENCOUNTER 2019-07-12 15:19 | Emergency (ER) | payer OTHER ==
[~2019-07-12] VITALS: Ht 182.9 cm; Wt 99.8 kg
[~2019-07-12 15:19] MED LIST changes: +MITIGARE0.6 MG PO; +PREDNISONE 10 M10 MG PO; +PROTONIX40 M1 PO
[2019-07-12 15:57] LABS: HEMATOCRIT 31.9 % (42.0-52.0); HEMOGLOBIN 10.8 gm/dL (14.0-18.0); MCH 29.9 pg (26.0-34.0); MCHC 33.7 g/dL (28.0-37.0); MCV 88.6 fL (80.0-100.0); MPV 7.2 fl. (7.2-11.1); NUCLEATED RBCS 0 /100WBC; PLATELET COUNT* 242 thou/uL (150-400); RDW-CV 16.4 % (10.5-14.5)
[2019-07-12 16:06] LABS: PROTIME 10.6 Seconds (9.20-11.50)
[2019-07-12 16:07] LABS: CALCIUM 9.6 mg/dL (8.5-10.1); CREATININE 6.5 mg/dL (0.6-1.3); POTASSIUM 3.8 mmol/L (3.5-5.1)
[2019-07-12 16:19] LABS: ALBUMIN 3.3 g/dL (3.4-5.0); CK-MB MASS 1.7 ng/mL (<0.5-3.6); MAGNESIUM 2.2 mg/dL (1.8-2.4); TOTAL BILIRUBIN 0.4 mg/dL (<0.1-1.0); TOTAL PROTEIN 7.5 g/dL (6.4-8.2)
[2019-07-12 16:28] LABS: ABSOLUTE LYMPHOCYTES 0.3 thou/uL (0.8-5.3); ABSOLUTE MONOCYTES 0.2 thou/uL (0.0-1.2); ABSOLUTE NEUTROPHILS 7.4 thou/uL (1.6-8.1)
[2019-07-12 16:29] LABS: ANISOCYTOSIS Occasional; PLATELET ESTIMATE ADEQUATE
[2019-07-12 16:56] VITALS: BP 140/71
--- NOTE | 2019-07-13 15:00 | EKG ---
[place] [address] ELECTROCARDIOGRAM REPORT Name: AYANA MARIA Room: 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 Representative: JACQUIE : 1980 Requested By: Malik Watson Order Number: [id number] MD: Jose Coronado Measurements Intervals [place] Rate: 85 P: 59 [place]: 170 QRS: 6 QRSD: 106 T: 31 QT: 394 QTc: 469 Interpretive Statements Sinus rhythm Borderline T wave abnormalities Compared to ECG 07/05/2019 11:37:56 T-wave abnormality now present Right ventricular hypertrophy no longer present Electronically Signed On 07-13-2019 14:59:51 CDT by Jose Coronado [email or web address] <ELECTRONICALLY SIGNED> By: Jose Coronado MD, [facility] 07/13/19 1459 1530 153 Jose Coronado MD, FACC /EPI
== END 2019-07-12 16:57 | disposition home or self-care (01) ==
LOC: M.ERS 15:19
PROVIDERS: Family Medicine
DX: R07.89 Other chest pain (principal); Z88.6 Allergy status to analgesic agent; Z88.8 Allergy status to other drugs, medicaments and biological substances; N18.6 End stage renal disease; Z99.2 Dependence on renal dialysis

== ENCOUNTER 2019-08-02 19:40 | Inpatient (IN) | payer OTHER ==
[~2019-08-02] VITALS: Ht 182.9 cm; Wt 91.6 kg
--- NOTE | ~2019-08-02 | CON ---
[address] [address] CONSULTATION Name: TONNYNELSONJAYAYANA BENJAMÍN Room: [address] IN M.R.#: [id number] Admission: 08/02/19 Attend Phys: Morena York Discharge: Date of : 82 Report #: [id number] THIS REPORT FOR: //name// CC: Yancy Larkin DICTATED BY: Giulia Mims [facility] DATE OF SERVICE: 08/03/2019 Please note at the time of this dictation, the patient was seen and physically examined by myself. REASON FOR CONSULTATION: Anemia. HISTORY OF PRESENT ILLNESS: This is a 38-year-old male who presented to the Emergency Room for abnormal labs. He went to go have dialysis yesterday afternoon and he was refused dialysis because his potassium was 6.8 and instructed to come to the ER. The patient states he has been having chronic chest pain due to pericarditis. Otherwise, the patient states he has had no nausea, vomiting, difficulty swallowing, any issues with acid reflux, any abdominal pain. He states his bowels move daily. He has not noticed any bright red blood or any black stools. ALLERGIES: ASPIRIN AND MAGNESIUM. MEDICATIONS FROM HOME: He is on pantoprazole, colchicine, renal vitamin, calcium acetate, Zofran, [place], amiodarone, Renvela, and prednisone. PAST MEDICAL HISTORY: Polycystic kidney disease, he is on dialysis. PAST SURGICAL HISTORY: Kidney transplant back in 2015 failed. In 2019, his gastric bypass surgery. FAMILY HISTORY: Negative for any GI or female cancers. SOCIAL HISTORY: Denies any alcohol, tobacco or illegal drug use. REVIEW OF SYSTEMS: A 12-point review of systems is essentially negative except what is mentioned in the HPI. PHYSICAL EXAMINATION: VITAL SIGNS: Temperature 37.1, pulse 57, respirations 12, blood pressure 145/85. HEART: [place] [address] CONSULTATION Name: AYANA MARIA Room: [address]#: [id number] Admission: 08/02/19 Attend Phys: Morena York Discharge: Date of : 82 Report #: [id number] LUNGS: Clear. ABDOMEN: Soft, positive bowel sounds in all 4 quadrants with no masses or tenderness noted. LABORATORY DATA: Hemoglobin was 7.7. He dropped down to 7. He is 7.4 this morning. White count is 3.1, platelets 136, potassium was 6.9, GFR is 4. BUN is 72, creatinine is 13.6. The patient received dialysis this morning. Troponin was normal. LFTs were completely normal. MCV was normal at 89. IMPRESSION: 1. Anemia. 2. Thrombocytopenia. 3. Chronic kidney disease stage 5, dialysis. 4. Hyperkalemia. 5. History of gastric bypass. PLAN: 1. The patient is getting dialysis today. 2. Monitor for any overt bleeding. 3. We will consider endoscopic evaluation and discussed with Dr. Courtney regarding the same. Thank you for allowing us to participate in this patient's care. Please do not hesitate to call with any questions in regard to this consult. By: 1211 1228Andreas Courtney MD /nt
[2019-08-02 19:50] VITALS: BP 139/85
[2019-08-02 20:13] LABS: HEMATOCRIT 22.8 % (42.0-52.0); HEMOGLOBIN 7.7 gm/dL (14.0-18.0); MCH 30.1 pg (26.0-34.0); MCHC 33.6 g/dL (28.0-37.0); MCV 89.5 fL (80.0-100.0); MPV 7.4 fl. (7.2-11.1); NUCLEATED RBCS 0 /100WBC; PLATELET COUNT* 143 thou/uL (150-400); RBC 2.54 mil/uL (4.50-6.00); RDW-CV 16.5 % (10.5-14.5); WBC 4.1 thou/uL (4.0-11.0)
[2019-08-02 20:15] LABS: CALCIUM 8.3 mg/dL (8.5-10.1); CREATININE 19.3 mg/dL (0.6-1.3)
[2019-08-02 20:20] LABS: ALBUMIN 3.3 g/dL (3.4-5.0); POTASSIUM 6.9 mmol/L (3.5-5.1); TOTAL BILIRUBIN 0.4 mg/dL (<0.1-1.0); TOTAL PROTEIN 6.9 g/dL (6.4-8.2)
[2019-08-02 21:48] VITALS: BP 166/92
[2019-08-02 21:49] LABS: ABSOLUTE BASOPHILS 0.1 thou/uL (0.0-0.2); ABSOLUTE EOSINOPHILS 0.3 thou/uL (0.0-0.7); ABSOLUTE LYMPHOCYTES 0.7 thou/uL (0.8-5.3); ABSOLUTE MONOCYTES 0.3 thou/uL (0.0-1.2); ABSOLUTE NEUTROPHILS 2.7 thou/uL (1.6-8.1); PLATELET ESTIMATE DECREASED
[2019-08-02 21:50] VITALS: BP 150/82
[2019-08-03 00:33] VITALS: BP 128/78
[2019-08-03 01:17] LABS: HEMATOCRIT 20.6 % (42.0-52.0)
[2019-08-03 04:00] VITALS: BP 119/70
[2019-08-03 07:26] LABS: CALCIUM 8.2 mg/dL (8.5-10.1)
[2019-08-03 07:27] LABS: CREATININE 13.6 mg/dL (0.6-1.3); POTASSIUM 4.8 mmol/L (3.5-5.1)
[2019-08-03 08:07] VITALS: BP 145/85
[2019-08-03 08:46] LABS: ABSOLUTE EOSINOPHILS 0.4 thou/uL (0.0-0.7); ABSOLUTE LYMPHOCYTES 0.5 thou/uL (0.8-5.3); ABSOLUTE MONOCYTES 0.3 thou/uL (0.0-1.2); ABSOLUTE NEUTROPHILS 1.8 thou/uL (1.6-8.1); BASOPHILS 1.1 %; EOSINOPHILS 11.4 %; HEMATOCRIT 21.7 % (42.0-52.0); HEMOGLOBIN 7.4 gm/dL (14.0-18.0); LYMPHOCYTES 17.4 %; MCH 30.3 pg (26.0-34.0); MCV 88.9 fL (80.0-100.0); MONOCYTES 11.1 %; MPV 7.2 fl. (7.2-11.1); NUCLEATED RBCS 0 /100WBC; PLATELET COUNT* 136 thou/uL (150-400); RBC 2.44 mil/uL (4.50-6.00); RDW-CV 16.5 % (10.5-14.5); WBC 3.1 thou/uL (4.0-11.0)
--- NOTE | 2019-08-03 09:51 | EKG ---
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
[2019-08-03 16:00] VITALS: BP 148/90
--- NOTE | 2019-08-03 17:00 | 2DMMODE ---
[facility] [address] [place] [address] 2 D/M-MODE ECHOCARDIOGRAM Name: TONNYNELSONJAYAYANA BENJAMÍN Room: [facility] ADM IN [facility]#: [id number] Admission: 08/02/19 Attend Phys: Abhijit Larkin Discharge: Date of : 82 Date of Service: 08/03/19 1700 Report #: [id number] THIS REPORT FOR: //name// APPROVED REPORT Study performed: 08/03/2019 14:22:41 EXAM: Limited 2D Echocardiogram Patient Location: In-Patient Room #: 226 Status: routine BSA: 2.18 HR: 57 bpm BP: 145/85 mmHg Rhythm: NSR Other Information Study Quality: Good Indications Pericarditis re evaluate pericarditis Left Ventricle Left ventricle is at the upper limits of normal. There is normal LV segmental wall motion. Moderate concentric left ventricular hypertrophy. The left ventricular systolic function is normal. The left ventricular ejection fraction is within the normal range. LVEF is 55-60%. Right Ventricle Right ventricle is mildly dilated. Atria Left atrium is moderately dilated. Right atrium is moderately dilated. Aortic Valve The aortic valve is normal in structure. Mitral Valve The mitral valve is normal in structure. Tricuspid Valve The tricuspid valve is [place] [address] 2 D/M-MODE ECHOCARDIOGRAM Name: CROWAYANA BUTTS Room: [address] IN M.R.#: [id number] Admission: 08/02/19 Attend Phys: Abhijit Larkin Discharge: Date of : 82 Date of Service: 08/03/191699 Report #: [id number] Pulmonic Valve The pulmonary valve is normal in structure. Great Vessels The aortic root is normal in size. IVC is normal in size and collapses >50% with inspiration. Pericardium There is no pericardial effusion. <Conclusion> LVEF is 55-60%. Left atrium is moderately dilated. Moderate concentric left ventricular hypertrophy. There is no pericardial effusion. <ELECTRONICALLY SIGNED> By: Amauri Block MD, FACC 08/03/191699 99 99 Amauri Blcok MD, FACC /INF
[2019-08-03 20:00] VITALS: BP 130/68
[2019-08-04] VITALS: BP 143/88
[2019-08-04 04:00] VITALS: BP 126/72
[2019-08-04 04:58] LABS: HEMATOCRIT 25.8 % (42.0-52.0); HEMOGLOBIN 8.6 gm/dL (14.0-18.0); MCH 29.9 pg (26.0-34.0); MCHC 33.5 g/dL (28.0-37.0); MCV 89.3 fL (80.0-100.0); MPV 7.4 fl. (7.2-11.1); RBC 2.89 mil/uL (4.50-6.00); RDW-CV 16.5 % (10.5-14.5); WBC 3.2 thou/uL (4.0-11.0)
[2019-08-04 05:28] LABS: ALBUMIN 2.7 g/dL (3.4-5.0); MAGNESIUM 2.3 mg/dL (1.8-2.4); PHOSPHORUS* 6.5 mg/dL (2.5-4.9)
[2019-08-04 05:29] LABS: CREATININE 8.8 mg/dL (0.6-1.3)
[2019-08-04 08:00] VITALS: BP 115/78
[2019-08-04 12:10] VITALS: BP 115/78
[2019-08-04 12:46] VITALS: BP 115/78
[2019-08-05 02:07] LABS: HEPATITIS B SURFACE AG Negative (Negative)
--- NOTE | 2019-08-05 09:05 | CON ---
[address] [address] CONSULTATION Name: TONNYNELSONJAYAYANA Room: [address] IN M.R.#: [id number] Admission: 08/02/19 Attend Phys: Morena York Discharge: 08/04/19 Date of : 82 Report #: [id number] THIS REPORT FOR: //name// CC: Yancy Larkin DATE OF SERVICE: 08/03/2019 NEPHROLOGY CONSULTATION CONSULTING PHYSICIAN: Dr. Conner. REASON FOR NEPHROLOGY CONSULTATION: End-stage renal disease, potassium high. REASON FOR ADMISSION: Abnormal labs. CHIEF COMPLAINT: Abnormal labs. HISTORY OF PRESENT ILLNESS: This is a 38-year-old male who has past medical history of pericarditis, was started on colchicine by Cardiology, end-stage renal disease, on hemodialysis every Thursday, and Thursday; history of polycystic kidney disease, kidney transplant, which failed and left AV fistula, pericarditis because of reasons, pericardial effusion, came in because of his potassium being high. The patient said that his dialysis unit louise his labs yesterday and did not start him on dialysis yet and his potassium came back at 6.9, so he was asked to come to the hospital. He was dialyzed last night for 2 hours and his potassium 4.8, this morning and he is again being dialyzed and was seen on dialysis this morning. He feels slightly better, but he is having a headache. He is also at 96 kg right now whereas his dry weight is around [address] above his dry weight and he said he did miss a couple of sessions of dialysis, but that was more than a week ago. ALLERGIES: ASPIRIN, MAGNESIUM. REVIEW OF SYSTEMS: As mentioned in the history of present illness otherwise 10-point review of systems are negative. He also has chronic chest pain because of his history of uremic pericarditis and pericardial effusion. PAST MEDICAL AND SURGICAL HISTORY: End-stage renal disease, on hemodialysis every Thursday, and Thursday; history of uremic pericarditis, pericardial effusion, left arm AV fistula mildly aneurysmal, autosomal dominant polycystic kidney disease, kidney transplant, recipient gastric bypass. FAMILY HISTORY: Significant for family history of hypertension in mother [place] [address] CONSULTATION Name: AYANA MARIA BENJAMÍN Room: [address]#: [id number] Admission: 08/02/19 Attend Phys: Morena York Discharge: 08/04/19 Date of : 82 Report #: [id number] SOCIAL HISTORY: Does not smoke or drink alcohol or use illicit drugs. HOME MEDICATIONS: Which according to the patient's chart include pantoprazole, colchicine, folic acid, calcium acetate, ondansetron, hydrocodone, acetaminophen, amiodarone, sevelamer and prednisone. PHYSICAL EXAMINATION: VITAL SIGNS: Blood pressure is 145/85, respiratory rate is 12, pulse rate is 57, temperature 37.1 and pulse ox is 100% on room air. GENERAL: He is awake, alert, oriented x 3. He was seen on dialysis table ____. He has facial edema. HEAD, EYES, EARS, NOSE, AND THROAT: Normal conjunctivae. Normal ears and nose. Mucous membranes are moist. NECK: No JVD. CHEST: Bilateral diminished breath sounds bilaterally anteriorly. No crackles. CARDIOVASCULAR: S1, S2 normal. No murmurs are noted. ABDOMEN: Soft, nondistended, nontender. Bowel sounds are present. EXTREMITIES: Lower extremities, there is 1+ edema. NEUROLOGICAL FUNCTION: Gross neurological function is intact. PSYCHIATRIC: Mood and affect seem to be normal. LABORATORY DATA: Hemoglobin 7.4, WBC 33.1, platelet count is 136, potassium was 6.9, now 4.8 this morning, sodium 143 this morning, BUN 72 and was 118 he had last night. Other labs were reviewed. IMAGING: No imaging to be reviewed. ASSESSMENT: 1. End-stage renal disease, on hemodialysis every Thursday, and Thursday, lately has been noncompliant with dialysis. 2. History of kidney transplant. 3. History of autosomal dominant polycystic kidney disease. 4. Anemia, which is worse from before. He has anemia of chronic kidney disease, but hemoglobin is lower from before and his stool for occult blood is positive for blood. 5. Fluid overload. 6. Hypertension. 7. History of uremic pericarditis, pericardial effusion. PLAN: 1. GI has been consulted because of possible GI bleed. He was on colchicine at home, which was recently started because of his recurrent uremic pericarditis, we will give him erythropoietin to help with his anemia as well. 2. Dialyzed him last night for 2 hours, seen on dialysis again today and we will dialyze him again tomorrow because tomorrow is a regular dialysis day. 3. Because of his fluid overload, we are trying to remove as much fluid as [address] [address] CONSULTATION Name: AYANA MARIA Room: [address] IN M.R.#: [id number] Admission: 08/02/19 Attend Phys: Morena York Discharge: 08/04/19 Date of : 82 Report #: [id number]. 4. His hyperkalemia has been fixed after dialysis yesterday. Thank you for this consultation. We will continue to follow for dialysis needs. <ELECTRONICALLY SIGNED> By: Yady Pike MD 08/05/19 0905 0924 1100Yady Pike MD /nt
== END 2019-08-04 13:29 | disposition home or self-care (01) | DRG 640 ==
LOC: M.ERS 19:40 → M.TBA-ER 20:51 → M.2W 20:51
PROVIDERS: Family Medicine; Internal Medicine; Personal Emergency Response Attendant; ADMIT Internal Medicine
PROC: 5A1D70Z Performance of Urinary Filtration, Intermittent, Less than 6 Hours Per Day (ICD-10-PCS; principal; 2019-08-03)
PROC: 5A1D70Z Performance of Urinary Filtration, Intermittent, Less than 6 Hours Per Day (ICD-10-PCS; 2019-08-04)
DX: E87.5 Hyperkalemia (principal); N18.6 End stage renal disease; Z94.0 Kidney transplant status; I12.0 Hypertensive chronic kidney disease with stage 5 chronic kidney disease or end stage renal disease; D64.9 Anemia, unspecified; E87.70 Fluid overload, unspecified; I10 Essential (primary) hypertension; Z88.6 Allergy status to analgesic agent; Z88.8 Allergy status to other drugs, medicaments and biological substances; Z82.49 Family history of ischemic heart disease and other diseases of the circulatory system; Z83.42 Family history of familial hypercholesterolemia; Z91.15 Patient's noncompliance with renal dialysis; Z99.2 Dependence on renal dialysis

== ENCOUNTER 2019-10-16 21:30 | Inpatient (IN) | payer OTHER ==
[~2019-10-16] VITALS: Ht 182.9 cm; Wt 104.8 kg
[2019-10-16] MEDS ORDERED: VELPHORO500 MG (21:44)
[2019-10-16] MEDS ORDERED: MULTIVITAMIN (21:45)
[2019-10-16 21:46] VITALS: BP 185/102
[2019-10-16 21:48] LABS: URINE BILIRUBIN NEGATIVE (Negative); URINE BLOOD 3+ (Negative); URINE CLARITY SL CLOUDY; URINE COLOR YELLOW; URINE GLUCOSE-RANDOM TRACE (Negative); URINE KETONES NEGATIVE (Negative); URINE LEUKOCYTES-REFLEX NEGATIVE (Negative); URINE NITRITE-REFLEX NEGATIVE (Negative); URINE PROTEIN 2+ (Negative); URINE UROBILINOGEN 0.2 E.U./dl (0.2-1.0)
[2019-10-16 21:49] LABS: BACTERIA-REFLEX 1-9 Few /HPF (None Seen); CASTS None Seen /LPF (None Seen); CRYSTALS None Seen /LPF (None Seen); MUCUS 0-3 Light strn/LPF (None Seen); SQUAMOUS 0-3 Few /LPF (0-3); URINE RBC >20 Many /HPF (0-2); URINE WBC-REFLEX None Seen /HPF (0-5)
[2019-10-16 22:19] LABS: INFLUENZA A ANTIGEN Negative (Negative); INFLUENZA B ANTIGEN Negative (Negative)
[2019-10-16 22:48] LABS: ABSOLUTE BASOPHILS 0.1 thou/uL (0.0-0.2); ABSOLUTE EOSINOPHILS 0.4 thou/uL (0.0-0.7); ABSOLUTE LYMPHOCYTES 0.5 thou/uL (0.8-5.3); ABSOLUTE MONOCYTES 0.6 thou/uL (0.0-1.2); ABSOLUTE NEUTROPHILS 8.2 thou/uL (1.6-8.1); BASOPHILS 0.6 %; EOSINOPHILS 4.1 %; HEMATOCRIT 26.5 % (42.0-52.0); HEMOGLOBIN 9.1 gm/dL (14.0-18.0); MCHC 34.2 g/dL (28.0-37.0); MCV 87.7 fL (80.0-100.0); MONOCYTES 5.9 %; MPV 7.2 fl. (7.2-11.1); NUCLEATED RBCS 0 /100WBC; PLATELET COUNT* 208 thou/uL (150-400); POLYS 84.4 %; RBC 3.03 mil/uL (4.50-6.00); WBC 9.7 thou/uL (4.0-11.0)
[2019-10-16 22:53] LABS: CALCIUM 8.4 mg/dL (8.5-10.1); CREATININE 13.6 mg/dL (0.6-1.3); POTASSIUM 5.8 mmol/L (3.5-5.1)
[2019-10-16 22:54] LABS: INR 1.1; PROTIME 11.5 Seconds (9.20-11.50)
[2019-10-16 23:07] LABS: ALBUMIN 2.8 g/dL (3.4-5.0); TOTAL BILIRUBIN 0.4 mg/dL (<0.1-1.0); TOTAL PROTEIN 7.4 g/dL (6.4-8.2)
[2019-10-16 23:20] LABS: AMP/METHAMP Negative (Negative); BARBITURATES Negative (Negative); BENZODIAZEPINES Negative (Negative); COCAINE Negative (Negative); METHADONE Negative (Negative); OPIATES Negative (Negative); PCP Negative (Negative); THC Negative (Negative)
[2019-10-17 03:30] VITALS: BP 117/60
[2019-10-17 07:00] VITALS: BP 118/60
[2019-10-17 10:10] VITALS: BP 115/64
--- NOTE | 2019-10-17 10:17 | EKG ---
[place] [address] ELECTROCARDIOGRAM REPORT Name: AYANA MARIA Room: [place] [address] ADM IN M.R.#: [id number] Admission: 10/17/19 Attend Phys: Adri Landis Discharge: Date of : 82 Report #: [id number] THIS REPORT FOR: //name// [facility] ED Test Date: 2019-10-16 Test Time: 23:43:05 Pat Name: AYANA MARIA Department: Room: [facility] Gender: M Scraper Hand: BELL : 1980 Requested By: Fang Chaney Order Number: [id number] MD: Amauri Block Measurements Intervals [place] Rate: 120 P: 75 DC: 137 QRS: 24 QRSD: 88 T: 102 QT: 309 QTc: 437 Interpretive Statements Sinus tachycardia Nonspecific T abnormalities, lateral leads Compared to ECG 08/02/2019 20:05:51 T-wave abnormality now present Sinus rhythm no longer present Electronically Signed On 10-17-2019 10:16:41 [employer] by Amauri Block [email or web address] <ELECTRONICALLY SIGNED> By: Amauri Block MD, FACC 10/17/19 1016 2343 2343 Amauri Block MD, [facility] /EPI
[2019-10-17 11:46] VITALS: BP 121/72
[2019-10-17 20:00] VITALS: BP 141/69
[2019-10-18] VITALS: BP 131/71
[2019-10-18 04:00] VITALS: BP 161/85
[2019-10-18 06:31] LABS: ABSOLUTE EOSINOPHILS 0.1 thou/uL (0.0-0.7); ABSOLUTE LYMPHOCYTES 0.3 thou/uL (0.8-5.3); ABSOLUTE MONOCYTES 0.5 thou/uL (0.0-1.2); ABSOLUTE NEUTROPHILS 3.7 thou/uL (1.6-8.1); BASOPHILS 0.5 %; EOSINOPHILS 2.2 %; HEMATOCRIT 21.7 % (42.0-52.0); HEMOGLOBIN 7.2 gm/dL (14.0-18.0); LYMPHOCYTES 7.1 %; MCH 29.5 pg (26.0-34.0); MCHC 33.3 g/dL (28.0-37.0); MCV 88.7 fL (80.0-100.0); MONOCYTES 10.9 %; MPV 7.5 fl. (7.2-11.1); NUCLEATED RBCS 0 /100WBC; PLATELET COUNT* 159 thou/uL (150-400); POLYS 79.3 %; RBC 2.45 mil/uL (4.50-6.00); WBC 4.7 thou/uL (4.0-11.0)
[2019-10-18 06:39] LABS: CALCIUM 8.3 mg/dL (8.5-10.1); POTASSIUM 4.8 mmol/L (3.5-5.1)
[2019-10-18 06:47] LABS: CREATININE 10.3 mg/dL (0.6-1.3)
[2019-10-18 08:00] VITALS: BP 165/78
--- NOTE | 2019-10-18 11:03 | CON ---
[address] [address] CONSULTATION Name: MARTHAJAYAYANA Room: [address] IN M.R.#: [id number] Admission: 10/17/19 Attend Phys: Adri Landis Discharge: Date of : 82 Report #: [id number] THIS REPORT FOR: //name// CC: Yancy Bernabe DATE OF SERVICE: 10/17/2019 NEPHROLOGY CONSULTATION Consulting physician here is Dr. Chaney. REASON FOR NEPHROLOGY CONSULTATION: End-stage renal disease, on maintenance hemodialysis. REASON FOR ADMISSION: The patient was having cough and right flank pain and shortness of breath for 2 weeks now. 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 He also had some blood in his urine. His pain was similar to when he had ruptured one of his cysts. He now is better from before and is stabilizing. He missed his dialysis on Thursday because of him not feeling good. ALLERGIES: ASPIRIN AND MAGNESIUM. REVIEW OF SYSTEMS: As mentioned in history of present illness, otherwise 10-point review of systems done, negative. PAST MEDICAL HISTORY: Includes history of kidney transplant; history of polycystic kidney disease; end-stage renal disease, on hemodialysis every Thursday, and Thursday; gastric bypass, also has a history of uremic pericardial effusion. PAST SURGICAL HISTORY: As mentioned above. HOME MEDICATIONS: Include folic acid, PhosLo, ondansetron, hydrocodone, acetaminophen, pantoprazole. FAMILY HISTORY: Reviewed. PHYSICAL EXAMINATION: [place] [address] CONSULTATION Name: AYANA MARIA Room: [address]#: [id number] Admission: 10/17/19 Attend Phys: Adri Landis Discharge: Date of : 82 Report #: [id number] VITAL SIGNS: Blood pressure is 116/57, pulse rate is 91, temperature is afebrile, respiratory rate is 21, pulse ox 95% on 2 liters of oxygen by nasal cannula. GENERAL: He is awake, alert, oriented x 3. HEAD AND EYES: Atraumatic, normocephalic. EARS, NOSE, AND THROAT: Normal ears and nose. Mucous membranes are moist. NECK: No JVD. CHEST: Bilaterally diminished breath sounds anteriorly. No crackles or wheezing. CARDIOVASCULAR: S1, S2 normal. No murmurs. ABDOMEN: Soft, nondistended, nontender. Bowel sounds present. EXTREMITIES: Lower extremities, there is no lower extremity edema. DIALYSIS ACCESS: Left arm AV fistula with good bruit and thrill. NEUROLOGICAL FUNCTION: Gross neurological function is intact. PSYCHIATRIC: Mood and affect seem to be normal. LABORATORY DATA: Hemoglobin is 9.1, WBC 9.7. Potassium is 4.2. Other labs are reviewed. IMAGING: Chest x-ray was reviewed. ASSESSMENT: 1. End-stage renal disease, on hemodialysis every Thursday, and Thursday. He missed his dialysis on Thursday. 2. Secondary hyperparathyroidism. He came in with right flank pain and does have blood in his urine, could have ruptured a cyst, not having any urinary complaints right now. 3. Anemia of chronic kidney disease. 4. Hypertension. PLAN: 1. The patient will be dialyzed today to continue to make up for his treatment on Thursday. We will give him erythropoietin to help with his dialysis needs. 2. Continue PhosLo. He will be again dialyzed tomorrow to keep him on the schedule. Thank you for this consultation. We will continue to follow with you. Even if he ruptured one of his cysts this time, I think he only needs supportive care for now unless his symptoms become worse. Thank you for this consultation. We will continue to follow with you. <ELECTRONICALLY SIGNED> By: Yady Pike MD 10/18/19 1103 1010 [id number] Pike MD /nt
[2019-10-18 16:53] VITALS: BP 145/82
[2019-10-19] VITALS: BP 130/76
[2019-10-19 04:00] VITALS: BP 142/73
[2019-10-19 08:00] VITALS: BP 144/84
[2019-10-19 14:12] LABS: ABSOLUTE EOSINOPHILS 0.2 thou/uL (0.0-0.7); ABSOLUTE LYMPHOCYTES 0.3 thou/uL (0.8-5.3); ABSOLUTE MONOCYTES 0.3 thou/uL (0.0-1.2); ABSOLUTE NEUTROPHILS 2.5 thou/uL (1.6-8.1); BASOPHILS 0.6 %; EOSINOPHILS 6.8 %; HEMOGLOBIN 7.4 gm/dL (14.0-18.0); LYMPHOCYTES 9.1 %; MCH 29.3 pg (26.0-34.0); MCHC 33.5 g/dL (28.0-37.0); MCV 87.7 fL (80.0-100.0); MONOCYTES 10.1 %; MPV 6.7 fl. (7.2-11.1); NUCLEATED RBCS 0 /100WBC; PLATELET COUNT* 133 thou/uL (150-400); POLYS 73.4 %; RBC 2.51 mil/uL (4.50-6.00); RDW-CV 16.7 % (10.5-14.5); WBC 3.3 thou/uL (4.0-11.0)
[2019-10-19 14:23] LABS: ALBUMIN 2.3 g/dL (3.4-5.0); CALCIUM 8.4 mg/dL (8.5-10.1); POTASSIUM 4.7 mmol/L (3.5-5.1); TOTAL BILIRUBIN 0.3 mg/dL (<0.1-1.0); TOTAL PROTEIN 6.3 g/dL (6.4-8.2)
[2019-10-19 14:24] LABS: CREATININE 8.2 mg/dL (0.6-1.3)
[2019-10-19 14:40] VITALS: BP 77/58
[2019-10-19 16:08] VITALS: BP 151/79
== END 2019-10-19 18:07 | disposition short-term general hospital (02) | DRG 640 ==
LOC: M.ERS 21:30 → M.TBA-ER 10-17 00:36 → M.2W 10-17 00:36 → M.TBA-ER 10-17 11:06 → M.2W 10-17 12:17
PROVIDERS: Emergency Medicine; Internal Medicine; ADMIT Family Medicine
PROC: 5A1D70Z Performance of Urinary Filtration, Intermittent, Less than 6 Hours Per Day (ICD-10-PCS; principal; 2019-10-17)
PROC: 5A1D70Z Performance of Urinary Filtration, Intermittent, Less than 6 Hours Per Day (ICD-10-PCS; 2019-10-18)
DX: E87.70 Fluid overload, unspecified (principal); N18.6 End stage renal disease; J18.9 Pneumonia, unspecified organism; N25.81 Secondary hyperparathyroidism of renal origin; I12.0 Hypertensive chronic kidney disease with stage 5 chronic kidney disease or end stage renal disease; Z94.0 Kidney transplant status; D63.1 Anemia in chronic kidney disease; Z88.6 Allergy status to analgesic agent; Z88.8 Allergy status to other drugs, medicaments and biological substances; Z79.899 Other long term (current) drug therapy; Z99.2 Dependence on renal dialysis

== ENCOUNTER 2020-01-02 04:55 | Observation (INO) | payer OTHER ==
[~2020-01-02] VITALS: Ht 182.9 cm; Wt 97.5 kg
[~2020-01-02 04:55] MED LIST changes: +MULTIVITAMINS PO; +VELPHORO500 MG PO
[2020-01-02 04:59] VITALS: BP 201/119
[2020-01-02 05:30] LABS: ABSOLUTE EOSINOPHILS 0.5 thou/uL (0.0-0.7); ABSOLUTE LYMPHOCYTES 0.7 thou/uL (0.8-5.3); ABSOLUTE MONOCYTES 0.4 thou/uL (0.0-1.2); ABSOLUTE NEUTROPHILS 4.6 thou/uL (1.6-8.1); BASOPHILS 0.5 %; EOSINOPHILS 7.6 %; HEMOGLOBIN 9.9 gm/dL (14.0-18.0); LYMPHOCYTES 11.3 %; MCH 30.2 pg (26.0-34.0); MCHC 34.1 g/dL (28.0-37.0); MCV 88.4 fL (80.0-100.0); MONOCYTES 6.3 %; MPV 6.9 fl. (7.2-11.1); NUCLEATED RBCS 0 /100WBC; PLATELET COUNT* 124 thou/uL (150-400); POLYS 74.3 %; RBC 3.28 mil/uL (4.50-6.00); RDW-CV 19.6 % (10.5-14.5); WBC 6.2 thou/uL (4.0-11.0)
[2020-01-02 05:39] LABS: ANION GAP 9 mmol/L (7-16); BUN 53 mg/dL (7-18); CALCIUM 8.7 mg/dL (8.5-10.1); CHLORIDE 101 mmol/L (98-107); CO2 31 mmol/L (21-32); CREATININE 8.3 mg/dL (0.6-1.3); GLUCOSE 96 mg/dL (70-99); POTASSIUM 4.6 mmol/L (3.5-5.1); SODIUM 141 mmol/L (136-145)
[2020-01-02 05:43] LABS: INR 1.1; PROTIME 10.9 Seconds (9.20-11.50)
[2020-01-02 05:50] LABS: ALBUMIN 3.2 g/dL (3.4-5.0); ALKALINE PHOSPHATASE 91 U/L (46-116); LIPASE 171 U/L (73-393); SGOT 30 U/L (15-37); SGPT 30 U/L (30-65); TOTAL BILIRUBIN 0.4 mg/dL (<0.1-1.0); TOTAL PROTEIN 6.7 g/dL (6.4-8.2)
[2020-01-02 06:26] LABS: NT-PRO BRAIN NAT PEPTIDE > 35000 pg/mL (<300)
--- NOTE | 2020-01-02 07:00 | NUR ---
RECEIVED FULL REPORT FROM RAO WITH VERBAL UNDERSTANDING. RESUMING PATIENT CARE. INTRODUCED SELF TO PT AND PT VERBALIZES UNDERSTANDING
--- NOTE | 2020-01-02 07:22 | NUR ---
PT REQUESTED WATER AND DR BENOIT STATES THAT HE MAY RECEIVE WATER AT THIS TIME. WATER GIVEN TO PT
[2020-01-02 09:13] VITALS: BP 147/92
[2020-01-02 10:03] VITALS: BP 145/87
--- NOTE | 2020-01-02 11:01 | EKG ---
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 Technician: EBEN : 1980 Requested By: Fang Chaney Order Number: [id number] MD: Jose Coronado Measurements Intervals [place] Rate: 94 P: 62 [place]: 160 QRS: 19 QRSD: 93 T: 104 QT: 377 QTc: 472 Interpretive Statements Sinus rhythm Probable left atrial enlargement Nonspecific T abnormalities, lateral leads Baseline wander in lead(s) V5 Compared to ECG 10/16/2019 23:43:05 Sinus tachycardia no longer present T-wave abnormality still present Electronically Signed On 01-02-2020 11:00:14 CDT by Jose Coronado [email or web address] <ELECTRONICALLY SIGNED> By: Jose Coronado MD, FACC 01/02/20 1100 0457 0457 Jose Coronado MD, FAC /EPI
--- NOTE | 2020-01-02 11:02 | EKG ---
[place] [address] ELECTROCARDIOGRAM REPORT Name: AYANA MARIA Room: [address] ADM IN M.R.#: [id number] Admission: 01/02/20 Attend Phys: Abhijit Larkin Discharge: Date of : 82 Date of Service: 01/02/20 0615 Report #: [id number] THIS REPORT FOR: //name// [facility] ED Test Date: 2020-01-02 Test Time: 06:15:53 Pat Name: AYANA MARIA Department: Room: [facility] Gender: M Water Operator: EBEN : 1980 Requested By: Fang Chaney Order Number: [id number] MD: Jose Coronado Measurements Intervals [place] Rate: 72 P: 53 [place]: 155 QRS: 17 QRSD: 97 T: 113 QT: 444 QTc: 486 Interpretive Statements Sinus rhythm Probable left atrial enlargement RSR' in V1 or V2, right VCD or RVH Nonspecific T abnormalities, lateral leads Borderline prolonged QT interval Compared to ECG 10/16/2019 23:43:05 Right ventricular hypertrophy now present RSR' in V1 or V2 now present Sinus tachycardia no longer present T-wave abnormality still present Electronically Signed On 01-02-2020 11:00:31 CDT by Jose Coronado [email or web address] <ELECTRONICALLY SIGNED> By: Jose Coronado MD, [facility] 01/02/20 1100 4 4 Jose Coronado MD, [facility] /EPI
[2020-01-02 11:55] LABS: CHOLESTEROL 119 mg/dL (<200); HDL CHOLESTEROL 51 mg/dL (>40); LDL CHOLESTEROL 59 mg/dL (<100); SERUM ASSESSMENT Clear; TC:HDL 2.3 Ratio (Not establshd); TRIGLYCERIDE 46 mg/dL (<150); VLDL 9 mg/dL (<40)
--- NOTE | 2020-01-02 18:25 | NUR ---
PT A&Ox4. VITALS STABLE. IN DIALYSIS MOST OF SHIFT, 5L OFF. UP AD QUENTIN. PAIN PARTIALLY CONTROLLED. SR ON MONITOR. IV PATENT. CALL LIGHT WITHIN REACH. WILL CONTINUE TO MONITOR.
[2020-01-02 20:00] VITALS: BP 161/83
[2020-01-03] VITALS: BP 150/91
[2020-01-03 04:00] VITALS: BP 161/95
--- NOTE | 2020-01-03 06:34 | NUR ---
ASSESSMENT COMPLETED CHARTED. MEDICATIONS ADMINISTERED PER MAR. HOURLY ROUNDING IN PLACE FOR SAFETY. CALL LIGHT WITHIN REACH. PT HAD C/O PAIN THAT REQUIRED PRN MEDICATION WITH FULL RELIEF. PT STATED HE SLEPT WELL AND REMAINS PAIN FREE THIS AM, DIALYSIS SCHEDULED FOR THIS AM.
[2020-01-03 08:06] VITALS: BP 169/90
--- NOTE | 2020-01-03 09:09 | CON ---
[address] [address] CONSULTATION Name: AYANA MARIA Room: [address] IN M.R.#: [id number] Admission: 01/02/20 Attend Phys: Morena York Discharge: Date of : 82 Report #: [id number] THIS REPORT FOR: //name// cc: Yancy Marte MD, Abid R. MD ~ THIS REPORT FOR: //name// CC: Yancy Larkin DATE OF SERVICE: 01/02/2020 NEPHROLOGY CONSULTATION CONSULTING PHYSICIAN: Dr. Leavitt REASON FOR NEPHROLOGY CONSULTATION: ESRD, for maintenance hemodialysis. REASON FOR ADMISSION: Chest pain, shortness of breath. HISTORY OF PRESENT ILLNESS: This is a 39-year-old male with past medical history of end-stage renal disease, on hemodialysis Thursday, and Thursday, has been above his dry weight for quite some time, came in with shortness of breath. Chest x-ray showed fluid overload. In fact, he stated that he did go for dialysis Thursday and he needed dialysis 4 times last week in order to come closer to his estimated dry weight. ALLERGIES: ASPIRIN, MAGNESIUM. REVIEW OF SYSTEMS: As mentioned in history of present illness. He has also been having some chest pain more towards the right retrosternal area. Otherwise, 10-point review of systems are negative. PAST MEDICAL AND SURGICAL HISTORY: Includes kidney transplant recipient in 2014 which failed in 2019, polycystic kidney disease, gastric bypass, end-stage renal disease, on hemodialysis every Thursday, and Thursday. HOME MEDICATIONS: Include Velphoro and the patient will be providing his complete list of medications. FAMILY HISTORY: Reviewed. SOCIAL HISTORY: Denies using alcohol, tobacco or any other recreational drugs. PHYSICAL EXAMINATION: VITAL SIGNS: Blood pressure is 147/92. He is on 2 liters of [place] [address] CONSULTATION Name: AYANA MARIA Room: [address]#: [id number] Admission: 01/02/20 Attend Phys: Morena York Discharge: Date of : 82 Report #: [id number] cannula oxygen saturation 97%, respiratory rate is 16, pulse rate 67, temperature 36.8. GENERAL: He is awake, alert, oriented x 3. HEAD AND EYES: Atraumatic, normocephalic. EARS, NOSE, AND THROAT: Normal ears and nose. His mucous membranes are moist. CHEST: Diminished breath sounds bilaterally posteriorly. No crackles could be heard. CARDIOVASCULAR: S1, S2 normal. No murmurs. ABDOMEN: Soft, obese, nondistended, nontender. EXTREMITIES: Lower extremities: There is no lower extremity edema. DIALYSIS ACCESS: AV fistula with good bruit and thrill. NEUROLOGICAL FUNCTION: Gross neurological function is intact. PSYCHIATRIC: Mood and affect seem to be normal. LABORATORY DATA: Hemoglobin is 9.9. Sodium is 141, potassium 4.0. Other labs are reviewed. IMAGING DATA: Chest x-ray and CT scan were reviewed. ASSESSMENT: 1. End-stage renal disease, on hemodialysis every Thursday, and Thursday. 2. Shortness of breath. The patient presented with fluid overload. 3. Anemia of chronic kidney disease. 4. Hypertension. Blood pressure was high when he first came in and now it is better controlled. 5. History of polycystic kidney disease and history of renal transplant in 2015, which failed in 2019. PLAN: 1. Avoid morphine in the setting of end-stage renal disease. 2. Avoid nephrotoxicity. 3. We will continue erythropoietin for anemia needs. 4. We will dialyze him today for a short run and dialysis again tomorrow for more fluid removal and tomorrow will be his regular day for dialysis. Thank you for this consultation. We will continue to follow for dialysis needs. Discussed with the patient. <ELECTRONICALLY SIGNED> By: Yady Pike MD 01/03/20 0909 0925 [id number] Pike MD /nt
--- NOTE | 2020-01-03 09:17 | NUR ---
ASSUMED CARE OF PT THIS AM AROUND 0715- RIVER PILOT IN PLACE ORDERED, TRACING SR- UPON ASSESSMENT PT NOTED TO BE RESTING IN BED, PLAYING ON PHONE- PT A&O X4- CONT OF BOWEL, OLIGURIA NOTED- UP AD-QUENTIN IN ROOM, STEADY GAIT NOTED- VSS, O2 SAT 95% ON RA- ABD SOFT/ROUND/NON-TENDER, BS X4 QUADS- LAST BM REPORTED 01/02/20- IV NOTED TO RIGHT FA INTACT AND SL- LEFT ARM FISTULA NOTED WITH POSITIVE BRUIT- 1200 F/R INITIATED THIS AM ORDERED- PT DENIES ANY C/O PAIN/DISCOMFORT- PT OFF UNIT FOR DIALYSIS THIS AM AROUND 0800- ALL NEEDS MET AT THIS TIME-WCTM
[2020-01-03 12:45] VITALS: BP 169/104
[2020-01-03 12:46] VITALS: BP 169/104
[2020-01-03] MEDS ORDERED: NIFEDIPINE ER30 M1 PO ×2 (14:18→14:33)
[2020-01-03] MEDS ORDERED: VELPHORO500 MG PO (14:33)
--- NOTE | 2020-01-03 15:03 | NUR ---
Pt is A&O. Resides at home with his . Active and independent. No DME. No hx of HH or SNF. Pt is current at [facility], Pt discharging to home today, CM to update clinic and fax referral and flowsheets. Zeina PAGE p:21 f:09
== END 2020-01-03 15:00 | disposition home or self-care (01) ==
LOC: M.ERS 04:55 → M.2W 07:27 → M.TBA-ER 07:27 → M.2W 07:27
PROVIDERS: Emergency Medicine; Registered Nurse; ADMIT Internal Medicine
DX: E87.70 Fluid overload, unspecified (principal); I11.0 Hypertensive heart disease with heart failure; N18.6 End stage renal disease; I50.33 Acute on chronic diastolic (congestive) heart failure; R07.89 Other chest pain; I13.2 Hypertensive heart and chronic kidney disease with heart failure and with stage 5 chronic kidney disease, or end stage renal disease; D63.8 Anemia in other chronic diseases classified elsewhere; I48.0 Paroxysmal atrial fibrillation; I31.9 Disease of pericardium, unspecified; Z99.2 Dependence on renal dialysis; Z91.14 Patient's other noncompliance with medication regimen

== ENCOUNTER 2020-02-21 04:20 | Emergency (ER) | payer OTHER ==
[~2020-02-21] VITALS: Ht 182.9 cm; Wt 97.1 kg
[~2020-02-21 04:20] MED LIST changes: +NIFEDIPINE ER30 M1 PO
[2020-02-21 05:15] LABS: ABSOLUTE EOSINOPHILS 0.3 thou/uL (0.0-0.7); ABSOLUTE LYMPHOCYTES 0.8 thou/uL (0.8-5.3); ABSOLUTE MONOCYTES 0.3 thou/uL (0.0-1.2); ABSOLUTE NEUTROPHILS 2.4 thou/uL (1.6-8.1); EOSINOPHILS 8.9 %; HEMATOCRIT 30.6 % (42.0-52.0); HEMOGLOBIN 10.8 gm/dL (14.0-18.0); LYMPHOCYTES 20.4 %; MCH 32.4 pg (26.0-34.0); MCHC 35.2 g/dL (28.0-37.0); MONOCYTES 8.1 %; MPV 7.1 fl. (7.2-11.1); NUCLEATED RBCS 0 /100WBC; PLATELET COUNT* 105 thou/uL (150-400); POLYS 61.6 %; RBC 3.32 mil/uL (4.50-6.00); RDW-CV 16.3 % (10.5-14.5); WBC 3.9 thou/uL (4.0-11.0)
[2020-02-21 05:27] LABS: PROTIME 10.6 Seconds (9.20-11.50)
[2020-02-21 05:33] LABS: CALCIUM 8.3 mg/dL (8.5-10.1); CREATININE 12.8 mg/dL (0.6-1.3); POTASSIUM 4.2 mmol/L (3.5-5.1)
[2020-02-21 05:37] LABS: ALBUMIN 3.1 g/dL (3.4-5.0); TOTAL BILIRUBIN 0.3 mg/dL (<0.1-1.0); TOTAL PROTEIN 6.8 g/dL (6.4-8.2)
[2020-02-21] MEDS ORDERED: CATAPRES0.1 MG PO (06:12)
[2020-02-21 06:19] VITALS: BP 165/95
--- NOTE | 2020-02-21 13:30 | EKG ---
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 : 1980 Requested By: Fang Chaney Order Number: [id number] MD: Jani York Measurements Intervals [place] Rate: 67 P: 65 [place]: 161 QRS: 18 QRSD: 98 T: 72 QT: 449 QTc: 474 Interpretive Statements Sinus rhythm Borderline T wave abnormalities Compared to ECG 01/02/2020 06:15:53 Right ventricular hypertrophy no longer present T-wave abnormality still present Electronically Signed On 02-21-2020 13:28:40 CDT by Jani York [email or web address] <ELECTRONICALLY SIGNED> By: Jani York MD, FAC 02/21/20 1328 0422 0422 Jani York MD, [facility] /EPI
== END 2020-02-21 06:19 | disposition home or self-care (01) ==
LOC: M.ERS 04:20
PROVIDERS: Emergency Medicine
DX: I16.0 Hypertensive urgency (principal); N18.6 End stage renal disease; Z88.8 Allergy status to other drugs, medicaments and biological substances; Z88.6 Allergy status to analgesic agent

== ENCOUNTER → 2020-04-25 | Outpatient (CLI) | payer MEDICARE ==
[~2020-04-25] MED LIST changes: +CATAPRES0.1 MG PO; +NIFEDIPINE ER90 M1 PO; +RENAPLEX-D TAB1 EACH PO
== END ==
LOC: M.LAB 06:11
PROVIDERS: ATTEND Surgery
DX: Z01.812 Encounter for preprocedural laboratory examination (principal); Z11.59 Encounter for screening for other viral diseases

== ENCOUNTER → 2020-04-30 | Day surgery (SDC) | payer MEDICARE ==
[~2020-04-30] MED LIST changes: +HYDROCODON-ACE1 EAC7 PO
--- NOTE | ~2020-04-30 | OP ---
[facility] [address] [place] [address] OPERATIVE REPORT Name: AYANA MARIA Room: [facility].R.#: [id number] Admission: 04/30/20 Attend Phys: Joseluis Nagel Discharge: Date of : 82 Report #: [id number] THIS REPORT FOR: //name// cc: Yancy Marte MD, Abid R. MD ~ THIS REPORT FOR: //name// CC: Yancy Nagel DATE OF SERVICE: 04/30/2020 PREOPERATIVE DIAGNOSIS: End-stage renal disease. POSTOPERATIVE DIAGNOSIS: End-stage renal disease. PROCEDURES: 1. Laparoscopic placement of tunneled intraperitoneal catheter. 2. Laparoscopic omentopexy. SURGEON: Joseluis Nagel MD ANESTHESIA: General. ESTIMATED BLOOD LOSS: Minimal. SPECIMEN: None. DESCRIPTION OF PROCEDURE: After informed consent was obtained, the patient was brought to the operating room and placed supine. SCDs were placed and working, preoperative antibiotics were administered, general anesthesia was induced. The abdomen was prepped and draped in the usual sterile fashion. A 5 mm incision was made in the left upper quadrant. A 5 mm trocar was placed under direct vision. Pneumoperitoneum was established. A left-sided 5 mm trocar was placed. An 8 mm trocar was placed in the left rectus sheath at the level of the umbilicus. A 62 cm Testt catheter was inserted. The catheter was then pulled back, so that the internal cuff was in the rectus sheath. Catheter was then tunneled to the left upper quadrant of the abdomen. Omentopexy was then performed. The omentum was grasped and brought up to the right upper quadrant. A 2-0 Vicryl suture was placed through the omentum using a PMI suture passer and then out to the skin. The ports were removed under direct vision. The catheter flushed easily with 750 mL of heparinized saline. It drained easily as well. A 500 mL of normal saline was left in the abdomen. The skin was then closed with 4-0 Monocryl. Incisions were dressed with Steri-Strips and sterile gauze[place] [address] OPERATIVE REPORT Name: AYANA MARIA Room: [facility]#: [id number] Admission: 04/30/20 Attend Phys: Joseluis Nagel Discharge: Date of : 82 Report #: [id number] dressing covered the catheter. COMPLICATIONS: None. DISPOSITION: The patient was taken to recovery in satisfactory condition. By: 0949 0956Joseluis Nagel MD /nt
[2020-04-30 07:27] LABS: HEMATOCRIT 33.5 % (42.0-52.0); HEMOGLOBIN 11.7 gm/dL (14.0-18.0); MCH 33.6 pg (26.0-34.0); MCV 96.1 fL (80.0-100.0); RBC 3.48 mil/uL (4.50-6.00); RDW-CV 14.3 % (10.5-14.5); WBC 5.2 thou/uL (4.0-11.0)
[2020-04-30 07:51] LABS: CALCIUM 8.6 mg/dL (8.5-10.1); CREATININE 12.6 mg/dL (0.6-1.3)
== END | disposition home or self-care (01) ==
LOC: M.SUR 06:50
PROVIDERS: ATTEND Surgery
DX: I13.2 Hypertensive heart and chronic kidney disease with heart failure and with stage 5 chronic kidney disease, or end stage renal disease (principal); I50.9 Heart failure, unspecified; N18.6 End stage renal disease; I48.91 Unspecified atrial fibrillation; Z95.5 Presence of coronary angioplasty implant and graft; Z79.899 Other long term (current) drug therapy; Z98.890 Other specified postprocedural states